=== PATIENT | male | born 1950 | race African-American/Black ===

== ENCOUNTER 2017-07-08 23:59 | Inpatient (IN) | payer OTHER ==
[~2017-07-08] VITALS: Ht 182.9 cm; Wt 68.0 kg
[~2017-07-08 23:59] MED LIST: albuterol
[2017-07-09] MEDS ORDERED: ALBUTEROL (0.083%) 2.5MG/3ML NEB HHN STA (00:56)
[2017-07-09] MEDS ORDERED: METHYLPREDNISOLONE SOD SUCC 125 MG/2 ML VIAL IV STA (00:56)
[2017-07-09] MEDS ORDERED: IPRATROPIUM BROMIDE (0.02%) 0.5MG/2.5ML NEB HHN STA (00:56)
[2017-07-09 01:13] LABS: BASOPHILS % 0.9 % (0.0-2.0); EOSINOPHILS % 4.5 % (0.0-5.0); HEMATOCRIT. 45.2 % (42.0-52.0); HEMOGLOBIN. 15.2 g/dL (14.0-18.0); LYMPHOCYTES % 18.8 % (20.0-50.0); MEAN CORPUSCULAR HEMOGLOBIN 27.8 pg (28.0-32.0); MEAN CORPUSCULAR VOLUME 82.5 fL (80.0-94.0); MEAN PLATELET VOLUME 7.6 fl (7.4-10.4); MONOCYTES % 5.1 % (2.0-8.0); NEUTROPHILS % 70.7 % (40.0-76.0); PLATELET 224 x1000/uL (130-400); RED BLOOD CELL COUNT 5.48 mill/uL (4.7-6.1); RED CELL DISTRIBUTION WIDTH 15.3 % (11.6-14.6)
[2017-07-09 01:29] LABS: CARBON DIOXIDE 27 mEq/L (21-32); CHLORIDE 108 mEq/L (98-107); TROPONIN I 0.04 ng/mL (0.00-0.04)
[2017-07-09] MEDS ORDERED: SODIUM CHLORIDE 0.9% 1,000 ML IV SCH (01:31)
[2017-07-09] MEDS ORDERED: ACETAMINOPHEN 325MG TABLET PO PRN ×2 (01:45→12:00)
[2017-07-09 01:54] LABS: BG BASE EXCESS -0.9 mmol/L (-2.0-2.0); BG CARBOXYHEMOGLOBIN 2.4 % (0.5-1.5); BG DEOXYHEMOGLOBIN 6.4 % (0.0-5.0); BG FRACTION INSPIRED OXYGEN 28; BG HCO3 ACT 24.5 mmol/L (22.0-26.0); BG METHEMOGLOBIN 0.3 % (0.0-1.5); BG OXYGEN SATURATION 93.4 % (92.0-98.5); BG OXYHEMOGLOBIN 90.9 % (94.0-97.0); BG PCO2 43.3 mmHg (35.0-45.0); BG PH 7.371 (7.350-7.450); BG PO2 68.7 mmHg (75.0-100.0); BG SAMPLE SITE RIGHT RADIAL; BG TOTAL HEMOGLOBIN 15.8 g/dL (12.0-18.0); BG VENT MODE NASAL CANNULA
[2017-07-09 04:00] VITALS: BP 141/78
[2017-07-09 04:20] VITALS: BP 141/78
[2017-07-09] MEDS ORDERED: METO25TA6 PO (05:21)
[2017-07-09] MEDS ORDERED: SIMV20TA6 PO (05:21)
[2017-07-09] MEDS ORDERED: IPRA3AMP9 HHN (05:21)
[2017-07-09] MEDS ORDERED: PRO AIR INH (05:21)
[2017-07-09 08:00] VITALS: BP 145/79
[2017-07-09 12:00] VITALS: BP 147/76
[2017-07-09] MEDS ORDERED: HYDROCODONE/ACETAMINOPHEN 5/325MG TABLET PO PRN (12:00)
[2017-07-09] MEDS ORDERED: CLONIDINE 0.1MG TABLET PO PRN (12:00)
[2017-07-09] MEDS ORDERED: HYDROMORPHONE HCL/PF 2MG/ML CPJ IV PRN (12:00)
[2017-07-09] MEDS ORDERED: ONDANSETRON HCL 4MG/2ML VIAL IV PRN (12:00)
[2017-07-09] MEDS ORDERED: IPRATROPIUM/ALBUTEROL 0.5-3(2.5)MG/3ML NEB INH PRN (12:00)
[2017-07-09] MEDS ORDERED: DOCUSATE SODIUM 100MG CAPSULE PO PRN (12:00)
[2017-07-09] MEDS ORDERED: METHYLPREDNISOLONE SOD SUCC 125 MG/2 ML VIAL IV SCH (12:00)
[2017-07-09] MEDS: GUAIFENESIN 200MG/10ML SUGAR FREE UDC PO PRN (13:03)
[2017-07-09] MEDS: AMLODIPINE 10MG TABLET PO SCH (13:04)
[2017-07-09] MEDS: ASPIRIN 81MG EC TABLET PO SCH (13:05)
[2017-07-09] MEDS: ENOXAPARIN 40MG/0.4ML SYR SUBCUT SCH (13:07)
[2017-07-09] MEDS: LEVOFLOXACIN 500MG PREMIX 100 ML IV SCH (13:56)
[2017-07-09] MEDS: IPRATROPIUM/ALBUTEROL 0.5-3(2.5)MG/3ML NEB INH SCH ×2 (15:33→20:08)
[2017-07-09 16:00] VITALS: BP 132/64
[2017-07-09] MEDS: METOPROLOL TARTRATE 25MG TABLET PO SCH (18:05)
[2017-07-09 20:07] VITALS: BP 142/64
[2017-07-09] MEDS: GUAIFENESIN 600MG ER TABLET PO SCH (21:00)
[2017-07-09] MEDS: METHYLPREDNISOLONE SOD SUCC 40 MG/ML VIAL IV SCH (21:53)
[2017-07-10 00:05] VITALS: BP 138/68
[2017-07-10] MEDS: IPRATROPIUM/ALBUTEROL 0.5-3(2.5)MG/3ML NEB INH SCH ×3 (02:52→14:35)
[2017-07-10 04:00] VITALS: BP 120/63
[2017-07-10] MEDS: METHYLPREDNISOLONE SOD SUCC 40 MG/ML VIAL IV SCH ×2 (05:33→13:22)
[2017-07-10] MEDS: METOPROLOL TARTRATE 25MG TABLET PO SCH (05:33)
[2017-07-10 06:47] LABS: HEMATOCRIT. 42.7 % (42.0-52.0); HEMOGLOBIN. 14.2 g/dL (14.0-18.0); MEAN CORPUSCULAR HEMOGLOBIN 27.3 pg (28.0-32.0); MEAN CORPUSCULAR VOLUME 82.5 fL (80.0-94.0); MEAN PLATELET VOLUME 8.1 fl (7.4-10.4); PLATELET 233 x1000/uL (130-400); RED BLOOD CELL COUNT 5.18 mill/uL (4.7-6.1); RED CELL DISTRIBUTION WIDTH 14.7 % (11.6-14.6)
[2017-07-10] MEDS: GUAIFENESIN 600MG ER TABLET PO SCH (08:05)
[2017-07-10] MEDS: GUAIFENESIN 200MG/10ML SUGAR FREE UDC PO PRN (08:05)
[2017-07-10] MEDS: ENOXAPARIN 40MG/0.4ML SYR SUBCUT SCH (08:05)
[2017-07-10] MEDS: AMLODIPINE 10MG TABLET PO SCH (08:05)
[2017-07-10] MEDS: ASPIRIN 81MG EC TABLET PO SCH (08:05)
[2017-07-10 08:19] VITALS: BP 136/72
[2017-07-10 09:02] LABS: CARBON DIOXIDE 24 mEq/L (21-32); CHLORIDE 109 mEq/L (98-107)
[2017-07-10 12:00] VITALS: BP 108/66
[2017-07-10] MEDS: LEVOFLOXACIN 500MG PREMIX 100 ML IV SCH (13:22)
[2017-07-10 16:00] VITALS: BP 112/64
[2017-07-10 16:33] LABS: PLATELET ESTIMATE NORMAL
[2017-07-10 16:58] VITALS: BP 112/64
[2017-07-10] MEDS ORDERED: METHYLPREDNISOLONE SOD SUCC 40 MG/ML VIAL IV SCH (21:00)
[2017-07-10] MEDS ORDERED: ATORVASTATIN CALCIUM 20MG TABLET PO SCH (21:00)
== END 2017-07-10 17:25 | disposition home or self-care (01) | DRG 189 ==
LOC: ER 23:59 → 7WST 07-09 01:33 → EDBEDREQ 07-09 01:36 → ENRESERV 07-09 01:46
PROVIDERS: ADMIT Hospitalist; ATTEND Hospitalist
DX: J96.01 Acute respiratory failure with hypoxia (principal); J44.0 Chronic obstructive pulmonary disease with (acute) lower respiratory infection; J44.1 Chronic obstructive pulmonary disease with (acute) exacerbation; J20.9 Acute bronchitis, unspecified; I10 Essential (primary) hypertension; Z60.2 Problems related to living alone; F17.210 Nicotine dependence, cigarettes, uncomplicated; Z79.899 Other long term (current) drug therapy; Z71.6 Tobacco abuse counseling; I25.2 Old myocardial infarction; Z83.3 Family history of diabetes mellitus; Z82.49 Family history of ischemic heart disease and other diseases of the circulatory system
CPT/HCPCS: 36415; 36600; 71010; 80048; 80053; 82375; 82805; 83605; 83880; 84484; 85025; 85379; 87040; 93005; 93970; 94640; 94644; 94664; 96374; 99291; J1650; J1956; J2920; J2930; J7030; J7050; J7611; J7620

== ENCOUNTER 2017-11-30 20:42 | Inpatient (IN) | payer MEDICARE, OTHER ==
[~2017-11-30] VITALS: Ht 182.9 cm; Wt 65.8 kg
[~2017-11-30 20:42] MED LIST changes: +IPRA3AMP9 HHN; +METO25TA6 PO; +PRO AIR INH; +SIMV20TA6 PO; -albuterol
[2017-11-30] MEDS ORDERED: IPRATROPIUM BROMIDE (0.02%) 0.5MG/2.5ML NEB HHN STA (20:48)
[2017-11-30] MEDS ORDERED: ASPIRIN 81MG TABLET PO STA (20:48)
[2017-11-30] MEDS ORDERED: ALBUTEROL (0.083%) 2.5MG/3ML NEB HHN STA ×2 (20:48→23:10)
[2017-11-30] MEDS ORDERED: NITROGLYCERIN 0.4MG TABLET SL SL PRN (21:00)
[2017-11-30] MEDS ORDERED: METHYLPREDNISOLONE SOD SUCC 125 MG/2 ML VIAL IV ONE (21:15)
[2017-11-30] MEDS ORDERED: LEVOFLOXACIN 750MG PREMIX 150 ML IV ONE (21:15)
[2017-11-30 21:17] LABS: BASOPHILS % 0.6 % (0.0-2.0); EOSINOPHILS % 4.4 % (0.0-5.0); HEMATOCRIT. 44.3 % (42.0-52.0); HEMOGLOBIN. 14.3 g/dL (14.0-18.0); LYMPHOCYTES % 37.9 % (20.0-50.0); MEAN CORPUSCULAR HEMOGLOBIN 27.2 pg (28.0-32.0); MEAN CORPUSCULAR VOLUME 84.2 fL (80.0-94.0); MEAN PLATELET VOLUME 7.4 fl (7.4-10.4); MONOCYTES % 7.5 % (2.0-8.0); NEUTROPHILS % 49.6 % (40.0-76.0); PLATELET 227 x1000/uL (130-400); RED BLOOD CELL COUNT 5.26 mill/uL (4.7-6.1); RED CELL DISTRIBUTION WIDTH 15.3 % (11.6-14.6)
[2017-11-30 21:25] LABS: CHLORIDE 106 mEq/L (98-107); INR 1.1; PARTIAL THROMBOPLASTIN TIME 25.2 sec (23.4-31.0)
[2017-11-30 22:27] LABS: BG BASE EXCESS -2.7 mmol/L (-2.0-2.0); BG BILEVEL POS AIRWAY PRESSURE 15/5; BG CARBOXYHEMOGLOBIN 1.3 % (0.5-1.5); BG DEOXYHEMOGLOBIN 0.3 % (0.0-5.0); BG FRACTION INSPIRED OXYGEN 60; BG METHEMOGLOBIN 0.1 % (0.0-1.5); BG OXYGEN SATURATION 99.7 % (92.0-98.5); BG OXYHEMOGLOBIN 98.3 % (94.0-97.0); BG PCO2 43.6 mmHg (35.0-45.0); BG PH 7.341 (7.350-7.450); BG PO2 347.5 mmHg (75.0-100.0); BG SAMPLE SITE RIGHT RADIAL; BG TOTAL HEMOGLOBIN 14.8 g/dL (12.0-18.0); BG VENT MODE MASK - BIPAP; BG VENT RATE 16 set
[2017-11-30] MEDS ORDERED: MAGNESIUM/ALUMINUM HYDROXIDE/SIMETHICONE 30ML UDC PO PRN (23:15)
[2017-11-30] MEDS ORDERED: IPRATROPIUM/ALBUTEROL 0.5-3(2.5)MG/3ML NEB INH PRN (23:15)
[2017-11-30] MEDS ORDERED: LORAZEPAM 0.5MG TABLET PO PRN (23:15)
[2017-11-30] MEDS ORDERED: NA PHOS,M-B/NA PHOS,DI-BA ENEMA 118ML PR PRN (23:15)
[2017-11-30] MEDS ORDERED: HYDROCODONE/ACETAMINOPHEN 10/325MG TABLET PO PRN (23:15)
[2017-11-30] MEDS ORDERED: CLONIDINE 0.1MG TABLET PO PRN (23:15)
[2017-11-30] MEDS ORDERED: GUAIFENESIN 200MG/10ML SUGAR FREE UDC PO PRN (23:15)
[2017-12-01] VITALS (91 sets, daily range): BP systolic 69–140; BP diastolic 30–111
[2017-12-01 01:00] LABS: CHLORIDE 108 mEq/L (98-107)
[2017-12-01] MEDS ORDERED: SODIUM CHLORIDE 0.9% 1000ML BAG (SEPSIS BOLUS) IV ONE (01:15)
[2017-12-01] MEDS: MORPHINE SULFATE 4 MG/ML CPJ (NOT FOR IM USE) IV PRN ×2 (04:29→08:40)
[2017-12-01] MEDS ORDERED: IPRATROPIUM/ALBUTEROL 0.5-3(2.5)MG/3ML NEB HHN PRN (04:30)
[2017-12-01] MEDS ORDERED: MAGNESIUM 2 G PREMIX 50 ML IV NR (05:00)
[2017-12-01] MEDS: DEXT 5%/0.45% NACL 1000ML 1,000 ML IV SCH (05:30)
[2017-12-01] MEDS: NOREPINEPHRINE 8 MG in DEXT 5% WATER 242 ML IV PRN ×2 (05:53→19:07)
[2017-12-01] MEDS: PROPOFOL 10MG/ML 100ML 100 ML IV PRN ×2 (05:55→10:21)
[2017-12-01 06:19] LABS: BG CARBOXYHEMOGLOBIN 0.5 % (0.5-1.5); BG DEOXYHEMOGLOBIN 0.3 % (0.0-5.0); BG FRACTION INSPIRED OXYGEN 100; BG HCO3 ACT 19.5 mmol/L (22.0-26.0); BG METHEMOGLOBIN 0.3 % (0.0-1.5); BG OXYGEN SATURATION 99.7 % (92.0-98.5); BG OXYHEMOGLOBIN 98.9 % (94.0-97.0); BG PCO2 58.7 mmHg (35.0-45.0); BG PH 7.139 (7.350-7.450); BG PO2 434.7 mmHg (75.0-100.0); BG SAMPLE SITE RIGHT RADIAL; BG TIDAL VOLUME(mL) 550 mL; BG TOTAL HEMOGLOBIN 13.5 g/dL (12.0-18.0); BG VENT MODE VENT - A/C; BG VENT RATE 16 set
[2017-12-01] MEDS: METHYLPREDNISOLONE SOD SUCC 125 MG/2 ML VIAL IV SCH ×3 (07:21→17:03)
[2017-12-01] MEDS: IPRATROPIUM/ALBUTEROL 0.5-3(2.5)MG/3ML NEB HHN SCH ×4 (07:44→20:38)
[2017-12-01] MEDS: PANTOPRAZOLE SODIUM 40 MG/VIAL IV SCH (08:39)
[2017-12-01] MEDS: ASPIRIN 81MG EC TABLET PO SCH (08:40)
[2017-12-01] MEDS: ENOXAPARIN 40MG/0.4ML SYR SUBCUT SCH (08:41)
[2017-12-01 09:11] LABS: BG BASE EXCESS -8.1 mmol/L (-2.0-2.0); BG CARBOXYHEMOGLOBIN 0.7 % (0.5-1.5); BG DEOXYHEMOGLOBIN 2.4 % (0.0-5.0); BG HCO3 ACT 18.8 mmol/L (22.0-26.0); BG METHEMOGLOBIN 0.4 % (0.0-1.5); BG OXYGEN SATURATION 97.6 % (92.0-98.5); BG OXYHEMOGLOBIN 96.5 % (94.0-97.0); BG PCO2 43.6 mmHg (35.0-45.0); BG PH 7.252 (7.350-7.450); BG PO2 111.9 mmHg (75.0-100.0); BG SAMPLE SITE RIGHT BRACHIAL; BG TIDAL VOLUME(mL) 500 mL; BG TOTAL HEMOGLOBIN 13.8 g/dL (12.0-18.0); BG VENT MODE VENT - A/C; BG VENT RATE 20 set
[2017-12-01 09:31] LABS: HEMOGLOBIN. 13.1 g/dL (14.0-18.0); MEAN CORPUSCULAR HEMOGLOBIN 26.6 pg (28.0-32.0); MEAN CORPUSCULAR VOLUME 83.5 fL (80.0-94.0); MEAN PLATELET VOLUME 7.6 fl (7.4-10.4); PLATELET 251 x1000/uL (130-400); RED BLOOD CELL COUNT 4.91 mill/uL (4.7-6.1); RED CELL DISTRIBUTION WIDTH 15.3 % (11.6-14.6)
[2017-12-01 09:38] LABS: CHLORIDE 111 mEq/L (98-107)
[2017-12-01] MEDS ORDERED: LIDOCAINE HCL 1% 20ML VIAL (Pyxis) INJ ONE (09:46)
[2017-12-01 09:56] LABS: HDL CHOLESTEROL 54 mg/dL (40-59); LDL CHOLESTEROL 58 mg/dL (5-100)
[2017-12-01 10:07] LABS: PLATELET ESTIMATE NORMAL
[2017-12-01] MEDS ORDERED: SODIUM BICARBONATE 8.4% 1 MEQ/ML 50ML SYR IV NR (11:15)
[2017-12-01] MEDS ORDERED: ETOMIDATE 2MG/ML 10ML VIAL IV ONE (11:18)
[2017-12-01] MEDS ORDERED: MAGNESIUM SULFATE 4G IN WATER 100ML PREMIX IV ONE (11:18)
[2017-12-01] MEDS ORDERED: SUCCINYLCHOLINE CHLORIDE 200MG/10ML VIAL IV ONE (11:18)
[2017-12-01] MEDS: FENTANYL CITRATE/PF 500 MCG in SODIUM CHLORIDE 0.9% 40 ML IV PRN ×2 (12:45→17:22)
[2017-12-01] MEDS: MIDAZOLAM HCL 50 MG in DEXTROSE 5% WATER 40 ML IV PRN ×2 (12:45→19:01)
[2017-12-01 14:16] LABS: BG BASE EXCESS -0.9 mmol/L (-2.0-2.0); BG CARBOXYHEMOGLOBIN 0.6 % (0.5-1.5); BG DEOXYHEMOGLOBIN 3.3 % (0.0-5.0); BG FRACTION INSPIRED OXYGEN 50; BG HCO3 ACT 24.8 mmol/L (22.0-26.0); BG METHEMOGLOBIN 0.2 % (0.0-1.5); BG OXYGEN SATURATION 96.7 % (92.0-98.5); BG OXYHEMOGLOBIN 95.9 % (94.0-97.0); BG PCO2 45.5 mmHg (35.0-45.0); BG PH 7.355 (7.350-7.450); BG PO2 94.3 mmHg (75.0-100.0); BG SAMPLE SITE RIGHT BRACHIAL; BG TIDAL VOLUME(mL) 500 mL; BG VENT MODE VENT - A/C; BG VENT RATE 20 set
[2017-12-01] MEDS: AZITHROMYCIN 500 MG in DEXT 5% WATER 250 ML IV SCH (15:32)
[2017-12-01 17:29] LABS: CLARITY URINE TURBID (CLEAR); COLOR URINE DARK YELLOW (YELLOW); KETONES URINE TRACE (NEGATIVE); LEUKOCYTE ESTERASE URINE TRACE (NEGATIVE); NITRITE URINE NEGATIVE (NEGATIVE); OCCULT BLOOD URINE 3+ (NEGATIVE); PH URINE 5.5 (4.5-8.0); PROTEIN URINE 1+ (NEGATIVE); UROBILINOGEN URINE 0.2 E.U./dL (0.2-1.0)
[2017-12-01 17:41] LABS: *AMPHETAMINES SCREEN URINE NEGATIVE (NEGATIVE); *BARBITURATES SCREEN URINE NEGATIVE (NEGATIVE); *BENZODIAZEPINES SCREEN URINE PRESUMTIVE POSITIVE (NEGATIVE); *COCAINE SCREEN URINE NEGATIVE (NEGATIVE); METHADONE URINE SCREEN NEGATIVE (NEGATIVE); OPIATES URINE SCREEN PRESUMTIVE POSITIVE (NEGATIVE)
[2017-12-01 17:42] LABS: CANNABINOID URINE SCREEN NEGATIVE (NEGATIVE); PHENCYCLIDINE URINE SCREEN NEGATIVE (NEGATIVE)
[2017-12-01] MEDS ORDERED: LEVOFLOXACIN 500MG PREMIX 100 ML IV SCH ×2 (21:00→22:00)
[2017-12-02] VITALS (87 sets, daily range): BP systolic 85–149; BP diastolic 48–107
[2017-12-02] MEDS: IPRATROPIUM/ALBUTEROL 0.5-3(2.5)MG/3ML NEB HHN SCH ×6 (00:09→19:42)
[2017-12-02] MEDS: METHYLPREDNISOLONE SOD SUCC 125 MG/2 ML VIAL IV SCH ×5 (00:40→23:27)
[2017-12-02 05:03] LABS: HEMATOCRIT. 38.2 % (42.0-52.0); HEMOGLOBIN. 12.2 g/dL (14.0-18.0); MEAN CORPUSCULAR HEMOGLOBIN 26.6 pg (28.0-32.0); MEAN CORPUSCULAR VOLUME 82.8 fL (80.0-94.0); MEAN PLATELET VOLUME 7.8 fl (7.4-10.4); PLATELET 217 x1000/uL (130-400); RED BLOOD CELL COUNT 4.61 mill/uL (4.7-6.1); RED CELL DISTRIBUTION WIDTH 14.9 % (11.6-14.6)
[2017-12-02 05:08] LABS: CHLORIDE 108 mEq/L (98-107)
[2017-12-02] MEDS: MIDAZOLAM HCL 50 MG in DEXTROSE 5% WATER 40 ML IV PRN ×2 (06:38→14:27)
[2017-12-02] MEDS: DEXT 5%/0.45% NACL 1000ML 1,000 ML IV SCH (06:52)
[2017-12-02 07:16] LABS: PLATELET ESTIMATE NORMAL
[2017-12-02 07:53] LABS: BG BASE EXCESS 2.1 mmol/L (-2.0-2.0); BG CARBOXYHEMOGLOBIN 0.5 % (0.5-1.5); BG DEOXYHEMOGLOBIN 4.3 % (0.0-5.0); BG FRACTION INSPIRED OXYGEN 50; BG HCO3 ACT 27.6 mmol/L (22.0-26.0); BG METHEMOGLOBIN 0.2 % (0.0-1.5); BG OXYGEN SATURATION 95.7 % (92.0-98.5); BG PCO2 46.6 mmHg (35.0-45.0); BG PH 7.391 (7.350-7.450); BG PO2 79.7 mmHg (75.0-100.0); BG SAMPLE SITE RIGHT BRACHIAL; BG TIDAL VOLUME(mL) 500 mL; BG VENT MODE VENT - A/C; BG VENT RATE 20 set
[2017-12-02] MEDS: PANTOPRAZOLE SODIUM 40 MG/VIAL IV SCH (08:31)
[2017-12-02] MEDS: ASPIRIN 81MG EC TABLET PO SCH (08:31)
[2017-12-02] MEDS: AZITHROMYCIN 500 MG in DEXT 5% WATER 250 ML IV SCH (08:32)
[2017-12-02] MEDS: ENOXAPARIN 40MG/0.4ML SYR SUBCUT SCH (08:32)
[2017-12-02] MEDS: FUROSEMIDE 40MG/4ML VIAL IVP SCH (12:06)
[2017-12-02] MEDS: RISPERIDONE 0.5MG TABLET PO SCH ×2 (12:07→17:12)
[2017-12-02] MEDS: FENTANYL CITRATE/PF 500 MCG in SODIUM CHLORIDE 0.9% 40 ML IV PRN ×2 (12:49→21:11)
[2017-12-02] MEDS: THIAMINE HCL 100MG TABLET PO SCH (14:25)
[2017-12-02] MEDS: FOLIC ACID 1MG TABLET PO SCH (14:25)
[2017-12-02] MEDS: MULTIVITAMINS,THER W-MINERALS TABLET PO SCH (14:25)
[2017-12-02] MEDS: MEROPENEM 1,000 MG in SODIUM CHLORIDE 0.9% 100 ML IV SCH ×2 (14:58→21:49)
[2017-12-02] MEDS ORDERED: VANCOMYCIN 1500MG in DEXTROSE 5% WATER 250ML IV NR (16:00)
[2017-12-02] MEDS: BLOOD SUGAR DIAGNOSTIC STRIP TEST SCH ×2 (17:13→23:19)
[2017-12-02] MEDS ORDERED: DEXTROSE 50% WATER 50ML SYRINGE IV PRN (18:00)
[2017-12-02] MEDS: INSULIN LISPRO 100 UNITS/ML SUBCUT SCH ×2 (18:20→23:57)
[2017-12-03] VITALS (88 sets, daily range): BP systolic 87–153; BP diastolic 57–123
[2017-12-03] MEDS: IPRATROPIUM/ALBUTEROL 0.5-3(2.5)MG/3ML NEB HHN SCH ×6 (00:12→20:20)
[2017-12-03] MEDS: NOREPINEPHRINE 8 MG in DEXT 5% WATER 242 ML IV PRN (02:14)
[2017-12-03] MEDS: MIDAZOLAM HCL 50 MG in DEXTROSE 5% WATER 40 ML IV PRN ×2 (04:04→20:26)
[2017-12-03] MEDS: BLOOD SUGAR DIAGNOSTIC STRIP TEST SCH ×4 (05:00→23:48)
[2017-12-03 05:33] LABS: HEMATOCRIT. 36.7 % (42.0-52.0); HEMOGLOBIN. 11.8 g/dL (14.0-18.0); MEAN CORPUSCULAR HEMOGLOBIN 26.6 pg (28.0-32.0); MEAN CORPUSCULAR VOLUME 82.8 fL (80.0-94.0); PLATELET 187 x1000/uL (130-400); RED BLOOD CELL COUNT 4.43 mill/uL (4.7-6.1); RED CELL DISTRIBUTION WIDTH 15.3 % (11.6-14.6)
[2017-12-03 05:54] LABS: CHLORIDE 107 mEq/L (98-107)
[2017-12-03] MEDS ORDERED: VANCOMYCIN 1 G PREMIX 200 ML IV SCH (06:00)
[2017-12-03] MEDS: MEROPENEM 1,000 MG in SODIUM CHLORIDE 0.9% 100 ML IV SCH ×3 (06:33→22:38)
[2017-12-03] MEDS: INSULIN LISPRO 100 UNITS/ML SUBCUT SCH ×4 (06:34→23:49)
[2017-12-03] MEDS: METHYLPREDNISOLONE SOD SUCC 125 MG/2 ML VIAL IV SCH ×4 (06:34→23:48)
[2017-12-03] MEDS: FENTANYL CITRATE/PF 500 MCG in SODIUM CHLORIDE 0.9% 40 ML IV PRN ×3 (08:06→20:26)
[2017-12-03] MEDS ORDERED: LORAZEPAM 2MG/ML CPJ IV NR (08:30)
[2017-12-03] MEDS: ASPIRIN 81MG EC TABLET PO SCH (08:50)
[2017-12-03] MEDS: RISPERIDONE 0.5MG TABLET PO SCH (08:50)
[2017-12-03] MEDS: MULTIVITAMINS,THER W-MINERALS TABLET PO SCH (08:50)
[2017-12-03] MEDS: THIAMINE HCL 100MG TABLET PO SCH (08:50)
[2017-12-03] MEDS: FUROSEMIDE 40MG/4ML VIAL IVP SCH (08:51)
[2017-12-03] MEDS: ENOXAPARIN 40MG/0.4ML SYR SUBCUT SCH (08:51)
[2017-12-03] MEDS: FOLIC ACID 1MG TABLET PO SCH (08:51)
[2017-12-03] MEDS: PANTOPRAZOLE SODIUM 40 MG/VIAL IV SCH (09:35)
[2017-12-03 09:38] LABS: BG BASE EXCESS 5.1 mmol/L (-2.0-2.0); BG CARBOXYHEMOGLOBIN 0.3 % (0.5-1.5); BG DEOXYHEMOGLOBIN 8.9 % (0.0-5.0); BG FRACTION INSPIRED OXYGEN 60; BG HCO3 ACT 31.4 mmol/L (22.0-26.0); BG METHEMOGLOBIN 0.3 % (0.0-1.5); BG OXYHEMOGLOBIN 90.5 % (94.0-97.0); BG PCO2 53.6 mmHg (35.0-45.0); BG PH 7.386 (7.350-7.450); BG SAMPLE SITE RIGHT BRACHIAL; BG TIDAL VOLUME(mL) 500 mL; BG TOTAL HEMOGLOBIN 13.6 g/dL (12.0-18.0); BG VENT MODE VENT - A/C; BG VENT RATE 20 set
[2017-12-03 13:03] LABS: PLATELET ESTIMATE NORMAL
[2017-12-03] MEDS: RISPERIDONE 1MG TABLET NG SCH (20:25)
[2017-12-03] MEDS: VANCOMYCIN 1 G PREMIX 200 ML IV SCH (20:25)
[2017-12-04] VITALS (76 sets, daily range): BP systolic 89–186; BP diastolic 49–161
[2017-12-04] MEDS: IPRATROPIUM/ALBUTEROL 0.5-3(2.5)MG/3ML NEB HHN SCH ×7 (00:09→23:58)
[2017-12-04] MEDS: METHYLPREDNISOLONE SOD SUCC 125 MG/2 ML VIAL IV SCH (05:36)
[2017-12-04] MEDS: INSULIN LISPRO 100 UNITS/ML SUBCUT SCH ×3 (05:45→17:56)
[2017-12-04] MEDS: BLOOD SUGAR DIAGNOSTIC STRIP TEST SCH ×4 (05:47→23:30)
[2017-12-04] MEDS: MORPHINE SULFATE 4 MG/ML CPJ (NOT FOR IM USE) IV PRN (05:52)
[2017-12-04] MEDS: MEROPENEM 1,000 MG in SODIUM CHLORIDE 0.9% 100 ML IV SCH ×3 (05:54→22:25)
[2017-12-04] MEDS: FENTANYL CITRATE/PF 500 MCG in SODIUM CHLORIDE 0.9% 40 ML IV PRN ×2 (06:08→17:25)
[2017-12-04 06:30] LABS: HEMATOCRIT. 36.7 % (42.0-52.0); HEMOGLOBIN. 11.7 g/dL (14.0-18.0); MEAN CORPUSCULAR HEMOGLOBIN 26.6 pg (28.0-32.0); MEAN CORPUSCULAR VOLUME 83.4 fL (80.0-94.0); MEAN PLATELET VOLUME 8.2 fl (7.4-10.4); PLATELET 188 x1000/uL (130-400); RED CELL DISTRIBUTION WIDTH 15.1 % (11.6-14.6)
[2017-12-04 06:43] LABS: CHLORIDE 105 mEq/L (98-107)
[2017-12-04] MEDS: DOCUSATE SODIUM 100MG CAPSULE PO PRN (08:48)
[2017-12-04] MEDS: VANCOMYCIN 1 G PREMIX 200 ML IV SCH ×3 (08:48→22:25)
[2017-12-04] MEDS: RISPERIDONE 1MG TABLET NG SCH ×2 (08:48→20:27)
[2017-12-04] MEDS: THIAMINE HCL 100MG TABLET PO SCH (08:48)
[2017-12-04] MEDS: PANTOPRAZOLE SODIUM 40 MG/VIAL IV SCH (08:48)
[2017-12-04] MEDS: ASPIRIN 81MG EC TABLET PO SCH (08:48)
[2017-12-04] MEDS: FOLIC ACID 1MG TABLET PO SCH (08:48)
[2017-12-04] MEDS: MULTIVITAMINS,THER W-MINERALS TABLET PO SCH (08:48)
[2017-12-04] MEDS: FUROSEMIDE 40MG/4ML VIAL IVP SCH (08:49)
[2017-12-04] MEDS: ENOXAPARIN 40MG/0.4ML SYR SUBCUT SCH (08:49)
[2017-12-04] MEDS: MIDAZOLAM HCL 50 MG in DEXTROSE 5% WATER 40 ML IV PRN ×2 (08:51→12:19)
[2017-12-04] MEDS: METHYLPREDNISOLONE SOD SUCC 40 MG/ML VIAL IV SCH ×2 (08:55→22:24)
[2017-12-04] MEDS ORDERED: METOPROLOL TARTRATE 50MG TABLET PO SCH (09:00)
[2017-12-04 09:01] LABS: BG BASE EXCESS 7.3 mmol/L (-2.0-2.0); BG CARBOXYHEMOGLOBIN 0.2 % (0.5-1.5); BG DEOXYHEMOGLOBIN 3.2 % (0.0-5.0); BG HCO3 ACT 34.3 mmol/L (22.0-26.0); BG METHEMOGLOBIN 0.2 % (0.0-1.5); BG OXYGEN SATURATION 96.8 % (92.0-98.5); BG OXYHEMOGLOBIN 96.4 % (94.0-97.0); BG PCO2 59.3 mmHg (35.0-45.0); BG PO2 92.9 mmHg (75.0-100.0); BG SAMPLE SITE RIGHT RADIAL; BG TIDAL VOLUME(mL) 500 mL; BG TOTAL HEMOGLOBIN 13.5 g/dL (12.0-18.0); BG VENT MODE VENT - A/C; BG VENT RATE 20 set
[2017-12-04] MEDS ORDERED: LORAZEPAM 2MG/ML CPJ IV PRN (12:30)
[2017-12-04] MEDS ORDERED: MORPHINE SULFATE 4 MG/ML CPJ (NOT FOR IM USE) IV PRN (12:30)
[2017-12-04 12:35] LABS: PLATELET ESTIMATE NORMAL
[2017-12-04] MEDS ORDERED: MIDAZOLAM HCL 100 MG in DEXT 5% WATER 80 ML IV PRN (17:00)
[2017-12-04] MEDS: FENTANYL CITRATE/PF 1,000 MCG in SODIUM CHLORIDE 0.9% 80 ML IV PRN (20:29)
[2017-12-05] VITALS (76 sets, daily range): BP systolic 84–193; BP diastolic 48–125
[2017-12-05] MEDS: INSULIN LISPRO 100 UNITS/ML SUBCUT SCH ×4 (00:18→18:00)
[2017-12-05] MEDS: IPRATROPIUM/ALBUTEROL 0.5-3(2.5)MG/3ML NEB HHN SCH ×6 (04:15→20:11)
[2017-12-05] MEDS: BLOOD SUGAR DIAGNOSTIC STRIP TEST SCH ×4 (05:00→23:00)
[2017-12-05] MEDS: MEROPENEM 1,000 MG in SODIUM CHLORIDE 0.9% 100 ML IV SCH ×3 (06:14→21:00)
[2017-12-05] MEDS: METHYLPREDNISOLONE SOD SUCC 40 MG/ML VIAL IV SCH ×3 (06:14→21:00)
[2017-12-05] MEDS: VANCOMYCIN 1 G PREMIX 200 ML IV SCH ×3 (06:14→21:36)
[2017-12-05] MEDS: FENTANYL CITRATE/PF 1,000 MCG in SODIUM CHLORIDE 0.9% 80 ML IV PRN ×2 (08:48→21:48)
[2017-12-05] MEDS: HALOPERIDOL LACTATE 5MG/ML VIAL IM PRN (09:32)
[2017-12-05] MEDS: FOLIC ACID 1MG TABLET PO SCH (09:52)
[2017-12-05] MEDS: PANTOPRAZOLE SODIUM 40 MG/VIAL IV SCH (09:52)
[2017-12-05] MEDS: DOCUSATE SODIUM 100MG CAPSULE PO PRN (09:52)
[2017-12-05] MEDS: ASPIRIN 81MG EC TABLET PO SCH (09:52)
[2017-12-05] MEDS: RISPERIDONE 1MG TABLET NG SCH ×2 (09:52→21:00)
[2017-12-05] MEDS: MULTIVITAMINS,THER W-MINERALS TABLET PO SCH (09:52)
[2017-12-05] MEDS: THIAMINE HCL 100MG TABLET PO SCH (09:52)
[2017-12-05] MEDS: ENOXAPARIN 40MG/0.4ML SYR SUBCUT SCH (09:53)
[2017-12-05] MEDS: BUDESONIDE 0.5MG/2ML NEB HHN SCH ×2 (10:04→20:11)
[2017-12-05] MEDS: LORAZEPAM 2MG/ML CPJ IV PRN (16:59)
[2017-12-05] MEDS ORDERED: LACTULOSE 20G/30ML UDC PO SCH (17:45)
[2017-12-05] MEDS ORDERED: LORAZEPAM 2MG/ML CPJ IV NR (18:30)
[2017-12-05] MEDS: MIDAZOLAM HCL 100 MG in DEXT 5% WATER 80 ML IV PRN (19:50)
[2017-12-05] MEDS: LEVETIRACETAM 500 MG in SODIUM CHLORIDE 0.9% 100 ML IV SCH (19:59)
[2017-12-05] MEDS: BISACODYL 10MG SUPP PR PRN (21:00)
[2017-12-06] VITALS (86 sets, daily range): BP systolic 74–159; BP diastolic 45–103
[2017-12-06] MEDS: INSULIN LISPRO 100 UNITS/ML SUBCUT SCH ×4 (00:07→17:52)
[2017-12-06] MEDS: IPRATROPIUM/ALBUTEROL 0.5-3(2.5)MG/3ML NEB HHN SCH ×6 (00:23→20:20)
[2017-12-06] MEDS: MEROPENEM 1,000 MG in SODIUM CHLORIDE 0.9% 100 ML IV SCH ×3 (05:42→21:05)
[2017-12-06] MEDS: VANCOMYCIN 1 G PREMIX 200 ML IV SCH ×3 (05:42→21:05)
[2017-12-06] MEDS: BLOOD SUGAR DIAGNOSTIC STRIP TEST SCH ×4 (05:47→23:00)
[2017-12-06] MEDS: LEVETIRACETAM 500 MG in SODIUM CHLORIDE 0.9% 100 ML IV SCH (06:18)
[2017-12-06 06:21] LABS: HEMATOCRIT. 35.3 % (42.0-52.0); HEMOGLOBIN. 11.5 g/dL (14.0-18.0); MEAN CORPUSCULAR VOLUME 82.6 fL (80.0-94.0); MEAN PLATELET VOLUME 7.8 fl (7.4-10.4); PLATELET 166 x1000/uL (130-400); RED BLOOD CELL COUNT 4.27 mill/uL (4.7-6.1); RED CELL DISTRIBUTION WIDTH 15.3 % (11.6-14.6)
[2017-12-06 07:26] LABS: CHLORIDE 105 mEq/L (98-107)
[2017-12-06 07:36] LABS: PLATELET ESTIMATE NORMAL
[2017-12-06] MEDS: BUDESONIDE 0.5MG/2ML NEB HHN SCH ×2 (09:22→20:20)
[2017-12-06] MEDS: FOLIC ACID 1MG TABLET PO SCH (09:28)
[2017-12-06] MEDS: ASPIRIN 81MG EC TABLET PO SCH (09:28)
[2017-12-06] MEDS: MULTIVITAMINS,THER W-MINERALS TABLET PO SCH (09:28)
[2017-12-06] MEDS: THIAMINE HCL 100MG TABLET PO SCH (09:28)
[2017-12-06] MEDS: ENOXAPARIN 40MG/0.4ML SYR SUBCUT SCH (09:29)
[2017-12-06] MEDS: PANTOPRAZOLE SODIUM 40 MG/VIAL IV SCH (09:30)
[2017-12-06] MEDS: RISPERIDONE 1MG TABLET PO SCH ×2 (09:34→20:48)
[2017-12-06] MEDS: LORAZEPAM 2MG/ML CPJ IV PRN (13:22)
[2017-12-06] MEDS: FENTANYL CITRATE/PF 1,000 MCG in SODIUM CHLORIDE 0.9% 80 ML IV PRN (14:07)
[2017-12-06] MEDS: MIDAZOLAM HCL 100 MG in DEXT 5% WATER 80 ML IV PRN (15:10)
[2017-12-06] MEDS: LEVETIRACETAM 500MG PREMIX 100 ML IV SCH (18:06)
[2017-12-07] VITALS (96 sets, daily range): BP systolic 59–172; BP diastolic 39–104
[2017-12-07] MEDS: IPRATROPIUM/ALBUTEROL 0.5-3(2.5)MG/3ML NEB HHN SCH ×6 (00:22→20:21)
[2017-12-07] MEDS: FENTANYL CITRATE/PF 1,000 MCG in SODIUM CHLORIDE 0.9% 80 ML IV PRN ×2 (00:55→13:45)
[2017-12-07] MEDS: MIDAZOLAM HCL 100 MG in DEXT 5% WATER 80 ML IV PRN ×2 (00:56→16:00)
[2017-12-07] MEDS: BLOOD SUGAR DIAGNOSTIC STRIP TEST SCH ×4 (05:00→23:00)
[2017-12-07] MEDS: MEROPENEM 1,000 MG in SODIUM CHLORIDE 0.9% 100 ML IV SCH ×3 (05:10→22:00)
[2017-12-07] MEDS: INSULIN LISPRO 100 UNITS/ML SUBCUT SCH ×4 (05:10→18:00)
[2017-12-07] MEDS: VANCOMYCIN 1 G PREMIX 200 ML IV SCH ×3 (05:11→22:00)
[2017-12-07] MEDS: LEVETIRACETAM 500MG PREMIX 100 ML IV SCH ×2 (06:26→18:35)
[2017-12-07] MEDS: BUDESONIDE 0.5MG/2ML NEB HHN SCH ×2 (08:10→20:21)
[2017-12-07 08:45] LABS: BG BASE EXCESS 13.6 mmol/L (-2.0-2.0); BG CARBOXYHEMOGLOBIN 0.9 % (0.5-1.5); BG DEOXYHEMOGLOBIN 3.9 % (0.0-5.0); BG FRACTION INSPIRED OXYGEN 55; BG HCO3 ACT 39.7 mmol/L (22.0-26.0); BG METHEMOGLOBIN 0.2 % (0.0-1.5); BG OXYGEN SATURATION 96.1 % (92.0-98.5); BG PCO2 55.9 mmHg (35.0-45.0); BG PH 7.469 (7.350-7.450); BG PO2 82.7 mmHg (75.0-100.0); BG SAMPLE SITE RIGHT RADIAL; BG TIDAL VOLUME(mL) 500 mL; BG TOTAL HEMOGLOBIN 13.4 g/dL (12.0-18.0); BG VENT MODE VENT - A/C; BG VENT RATE 20 set
[2017-12-07] MEDS: RISPERIDONE 1MG TABLET PO SCH ×2 (09:01→21:00)
[2017-12-07] MEDS: FOLIC ACID 1MG TABLET PO SCH (09:01)
[2017-12-07] MEDS: PANTOPRAZOLE SODIUM 40 MG/VIAL IV SCH (09:01)
[2017-12-07] MEDS: THIAMINE HCL 100MG TABLET PO SCH (09:01)
[2017-12-07] MEDS: ASPIRIN 81MG EC TABLET PO SCH (09:01)
[2017-12-07] MEDS: MULTIVITAMINS,THER W-MINERALS TABLET PO SCH (09:02)
[2017-12-07] MEDS: ENOXAPARIN 40MG/0.4ML SYR SUBCUT SCH (09:02)
[2017-12-07] MEDS ORDERED: SODIUM CHLORIDE 0.9% 250 ML IV ONE (10:30)
[2017-12-07 11:34] LABS: BASOPHILS % 0.2 % (0.0-2.0); EOSINOPHILS % 0.6 % (0.0-5.0); HEMATOCRIT. 36.2 % (42.0-52.0); HEMOGLOBIN. 11.9 g/dL (14.0-18.0); LYMPHOCYTES % 14.4 % (20.0-50.0); MEAN CORPUSCULAR HEMOGLOBIN 27.4 pg (28.0-32.0); MEAN CORPUSCULAR VOLUME 83.2 fL (80.0-94.0); MEAN PLATELET VOLUME 7.6 fl (7.4-10.4); MONOCYTES % 9.8 % (2.0-8.0); PLATELET 167 x1000/uL (130-400); RED BLOOD CELL COUNT 4.35 mill/uL (4.7-6.1); RED CELL DISTRIBUTION WIDTH 14.9 % (11.6-14.6)
[2017-12-07 11:51] LABS: CHLORIDE 106 mEq/L (98-107)
[2017-12-07] MEDS: NOREPINEPHRINE 8 MG in SODIUM CHLORIDE 0.9% 250 ML IV PRN (21:12)
[2017-12-08] VITALS (68 sets, daily range): BP systolic 58–198; BP diastolic 31–125
[2017-12-08] MEDS: IPRATROPIUM/ALBUTEROL 0.5-3(2.5)MG/3ML NEB HHN SCH ×6 (00:17→20:17)
[2017-12-08] MEDS: INSULIN LISPRO 100 UNITS/ML SUBCUT SCH ×5 (01:14→23:48)
[2017-12-08] MEDS: FENTANYL CITRATE/PF 1,000 MCG in SODIUM CHLORIDE 0.9% 80 ML IV PRN (04:14)
[2017-12-08] MEDS: BLOOD SUGAR DIAGNOSTIC STRIP TEST SCH ×4 (05:00→22:44)
[2017-12-08 05:31] LABS: BASOPHILS % 0.2 % (0.0-2.0); EOSINOPHILS % 1.9 % (0.0-5.0); HEMATOCRIT. 38.1 % (42.0-52.0); HEMOGLOBIN. 12.7 g/dL (14.0-18.0); LYMPHOCYTES % 14.6 % (20.0-50.0); MEAN CORPUSCULAR HEMOGLOBIN 27.5 pg (28.0-32.0); MEAN CORPUSCULAR VOLUME 82.8 fL (80.0-94.0); MEAN PLATELET VOLUME 7.7 fl (7.4-10.4); MONOCYTES % 9.3 % (2.0-8.0); PLATELET 194 x1000/uL (130-400); RED BLOOD CELL COUNT 4.61 mill/uL (4.7-6.1); RED CELL DISTRIBUTION WIDTH 14.7 % (11.6-14.6)
[2017-12-08 05:53] LABS: CHLORIDE 102 mEq/L (98-107)
[2017-12-08] MEDS: MEROPENEM 1,000 MG in SODIUM CHLORIDE 0.9% 100 ML IV SCH ×3 (06:57→22:36)
[2017-12-08] MEDS: VANCOMYCIN 1 G PREMIX 200 ML IV SCH ×3 (06:57→20:56)
[2017-12-08] MEDS: LEVETIRACETAM 500MG PREMIX 100 ML IV SCH ×2 (07:11→18:23)
[2017-12-08] MEDS: NOREPINEPHRINE 8 MG in SODIUM CHLORIDE 0.9% 250 ML IV PRN ×2 (08:11→16:20)
[2017-12-08] MEDS: MIDAZOLAM HCL 100 MG in DEXT 5% WATER 80 ML IV PRN (08:27)
[2017-12-08 08:35] LABS: BG BASE EXCESS 11.2 mmol/L (-2.0-2.0); BG CARBOXYHEMOGLOBIN 0.6 % (0.5-1.5); BG DEOXYHEMOGLOBIN 3.7 % (0.0-5.0); BG FRACTION INSPIRED OXYGEN 55; BG HCO3 ACT 36.5 mmol/L (22.0-26.0); BG METHEMOGLOBIN 0.4 % (0.0-1.5); BG OXYGEN SATURATION 96.3 % (92.0-98.5); BG OXYHEMOGLOBIN 95.3 % (94.0-97.0); BG PCO2 50.2 mmHg (35.0-45.0); BG PH 7.479 (7.350-7.450); BG SAMPLE SITE RIGHT BRACHIAL; BG TIDAL VOLUME(mL) 500 mL; BG VENT MODE VENT - A/C; BG VENT RATE 20 set
[2017-12-08] MEDS: PANTOPRAZOLE SODIUM 40 MG/VIAL IV SCH (08:57)
[2017-12-08] MEDS: RISPERIDONE 1MG TABLET PO SCH ×2 (08:57→20:56)
[2017-12-08] MEDS: BISACODYL 10MG SUPP PR PRN (08:58)
[2017-12-08] MEDS: ENOXAPARIN 40MG/0.4ML SYR SUBCUT SCH (08:58)
[2017-12-08] MEDS: ASPIRIN 81MG EC TABLET PO SCH (08:58)
[2017-12-08] MEDS: THIAMINE HCL 100MG TABLET PO SCH (08:58)
[2017-12-08] MEDS: FOLIC ACID 1MG TABLET PO SCH (08:58)
[2017-12-08] MEDS: MULTIVITAMINS,THER W-MINERALS TABLET PO SCH (08:58)
[2017-12-08] MEDS: DOCUSATE SODIUM 100MG CAPSULE PO PRN (08:58)
[2017-12-08] MEDS: BUDESONIDE 0.5MG/2ML NEB HHN SCH (09:22)
[2017-12-08] MEDS ORDERED: POTASSIUM CHLORIDE 20MEQ/PACKET NG NR (10:45)
[2017-12-09] VITALS (93 sets, daily range): BP systolic 71–150; BP diastolic 39–81
[2017-12-09] MEDS: IPRATROPIUM/ALBUTEROL 0.5-3(2.5)MG/3ML NEB HHN SCH ×6 (00:25→20:28)
[2017-12-09] MEDS: NOREPINEPHRINE 8 MG in SODIUM CHLORIDE 0.9% 250 ML IV PRN ×2 (00:31→07:18)
[2017-12-09] MEDS: MIDAZOLAM HCL 100 MG in DEXT 5% WATER 80 ML IV PRN (00:49)
[2017-12-09 04:45] LABS: BASOPHILS % 0.2 % (0.0-2.0); EOSINOPHILS % 5.2 % (0.0-5.0); HEMATOCRIT. 37.7 % (42.0-52.0); HEMOGLOBIN. 12.4 g/dL (14.0-18.0); LYMPHOCYTES % 14.5 % (20.0-50.0); MEAN CORPUSCULAR HEMOGLOBIN 27.4 pg (28.0-32.0); MEAN CORPUSCULAR VOLUME 83.2 fL (80.0-94.0); MEAN PLATELET VOLUME 7.4 fl (7.4-10.4); MONOCYTES % 11.5 % (2.0-8.0); NEUTROPHILS % 68.6 % (40.0-76.0); PLATELET 178 x1000/uL (130-400); RED BLOOD CELL COUNT 4.53 mill/uL (4.7-6.1); RED CELL DISTRIBUTION WIDTH 14.8 % (11.6-14.6)
[2017-12-09 04:53] LABS: CHLORIDE 104 mEq/L (98-107)
[2017-12-09] MEDS: BLOOD SUGAR DIAGNOSTIC STRIP TEST SCH ×4 (05:00→23:36)
[2017-12-09] MEDS: MEROPENEM 1,000 MG in SODIUM CHLORIDE 0.9% 100 ML IV SCH ×3 (05:49→22:42)
[2017-12-09] MEDS: INSULIN LISPRO 100 UNITS/ML SUBCUT SCH ×3 (06:00→17:46)
[2017-12-09] MEDS: VANCOMYCIN 1 G PREMIX 200 ML IV SCH ×3 (06:32→21:17)
[2017-12-09] MEDS ORDERED: POTASSIUM CHLORIDE 20MEQ/PACKET NG SCH (08:00)
[2017-12-09] MEDS: LEVETIRACETAM 500MG PREMIX 100 ML IV SCH ×2 (08:00→20:01)
[2017-12-09] MEDS: PANTOPRAZOLE SODIUM 40 MG/VIAL IV SCH (08:24)
[2017-12-09] MEDS: RISPERIDONE 1MG TABLET PO SCH ×2 (08:25→20:38)
[2017-12-09] MEDS: ENOXAPARIN 40MG/0.4ML SYR SUBCUT SCH (08:25)
[2017-12-09] MEDS: MULTIVITAMINS,THER W-MINERALS TABLET PO SCH (08:25)
[2017-12-09] MEDS: FOLIC ACID 1MG TABLET PO SCH (08:25)
[2017-12-09] MEDS: THIAMINE HCL 100MG TABLET PO SCH (08:25)
[2017-12-09] MEDS: ACETAMINOPHEN 325MG TABLET PO PRN (08:26)
[2017-12-09] MEDS: ASPIRIN 81MG TABLET NG SCH (08:43)
[2017-12-09] MEDS: METOCLOPRAMIDE HCL 10MG/2ML VIAL IV SCH ×3 (08:55→16:16)
[2017-12-09 09:10] LABS: BG BASE EXCESS 9.6 mmol/L (-2.0-2.0); BG CARBOXYHEMOGLOBIN 1.2 % (0.5-1.5); BG DEOXYHEMOGLOBIN 3.5 % (0.0-5.0); BG FRACTION INSPIRED OXYGEN 55; BG HCO3 ACT 35.1 mmol/L (22.0-26.0); BG METHEMOGLOBIN 0.3 % (0.0-1.5); BG OXYGEN SATURATION 96.4 % (92.0-98.5); BG PCO2 50.1 mmHg (35.0-45.0); BG PH 7.463 (7.350-7.450); BG PO2 83.8 mmHg (75.0-100.0); BG SAMPLE SITE RIGHT RADIAL; BG TIDAL VOLUME(mL) 500 mL; BG TOTAL HEMOGLOBIN 14.2 g/dL (12.0-18.0); BG VENT MODE VENT - A/C; BG VENT RATE 20 set
[2017-12-09] MEDS ORDERED: SODIUM CHLORIDE 0.45% 250 ML IV ONE (14:00)
[2017-12-09] MEDS ORDERED: KCL 20MEQ/100ML PREMIX 100 ML IV NR (15:00)
[2017-12-09] MEDS: FENTANYL CITRATE/PF 1,000 MCG in SODIUM CHLORIDE 0.9% 80 ML IV PRN (15:31)
[2017-12-09 15:58] LABS: PHOSPHORUS 2.5 mg/dL (2.5-4.9)
[2017-12-09] MEDS: NOREPINEPHRINE 8 MG in SODIUM CHLORIDE 0.9% 242 ML IV PRN (16:25)
[2017-12-10] VITALS (59 sets, daily range): BP systolic 74–201; BP diastolic 47–117
[2017-12-10] MEDS: METOCLOPRAMIDE HCL 10MG/2ML VIAL IV SCH ×4 (00:06→18:00)
[2017-12-10] MEDS: IPRATROPIUM/ALBUTEROL 0.5-3(2.5)MG/3ML NEB HHN SCH ×6 (00:28→20:57)
[2017-12-10] MEDS: NOREPINEPHRINE 8 MG in SODIUM CHLORIDE 0.9% 242 ML IV PRN ×2 (02:37→21:57)
[2017-12-10] MEDS: MEROPENEM 1,000 MG in SODIUM CHLORIDE 0.9% 100 ML IV SCH ×3 (05:46→21:57)
[2017-12-10] MEDS: MIDAZOLAM HCL 100 MG in DEXT 5% WATER 80 ML IV PRN (05:47)
[2017-12-10] MEDS: BLOOD SUGAR DIAGNOSTIC STRIP TEST SCH ×3 (05:47→17:00)
[2017-12-10] MEDS: INSULIN LISPRO 100 UNITS/ML SUBCUT SCH ×4 (06:00→18:00)
[2017-12-10 06:37] LABS: BASOPHILS % 0.2 % (0.0-2.0); EOSINOPHILS % 5.9 % (0.0-5.0); HEMATOCRIT. 36.3 % (42.0-52.0); HEMOGLOBIN. 11.9 g/dL (14.0-18.0); LYMPHOCYTES % 13.6 % (20.0-50.0); MEAN CORPUSCULAR HEMOGLOBIN 27.4 pg (28.0-32.0); MEAN CORPUSCULAR VOLUME 83.3 fL (80.0-94.0); MEAN PLATELET VOLUME 7.7 fl (7.4-10.4); MONOCYTES % 12.7 % (2.0-8.0); NEUTROPHILS % 67.6 % (40.0-76.0); PLATELET 160 x1000/uL (130-400); RED BLOOD CELL COUNT 4.36 mill/uL (4.7-6.1); RED CELL DISTRIBUTION WIDTH 14.9 % (11.6-14.6)
[2017-12-10] MEDS: VANCOMYCIN 1 G PREMIX 200 ML IV SCH ×3 (06:47→21:57)
[2017-12-10] MEDS: ENOXAPARIN 40MG/0.4ML SYR SUBCUT SCH (09:00)
[2017-12-10 09:03] LABS: BG BASE EXCESS 5.2 mmol/L (-2.0-2.0); BG CARBOXYHEMOGLOBIN 0.4 % (0.5-1.5); BG DEOXYHEMOGLOBIN 2.1 % (0.0-5.0); BG FRACTION INSPIRED OXYGEN 55; BG HCO3 ACT 30.3 mmol/L (22.0-26.0); BG METHEMOGLOBIN 0.4 % (0.0-1.5); BG OXYGEN SATURATION 97.9 % (92.0-98.5); BG OXYHEMOGLOBIN 97.1 % (94.0-97.0); BG PCO2 46.7 mmHg (35.0-45.0); BG SAMPLE SITE RIGHT RADIAL; BG TIDAL VOLUME(mL) 500 mL; BG TOTAL HEMOGLOBIN 11.9 g/dL (12.0-18.0); BG VENT MODE VENT - A/C; BG VENT RATE 20 set
[2017-12-10 09:45] LABS: CHLORIDE 106 mEq/L (98-107)
[2017-12-10] MEDS: LEVETIRACETAM 500MG PREMIX 100 ML IV SCH ×2 (10:07→19:53)
[2017-12-10] MEDS: MULTIVITAMINS,THER W-MINERALS TABLET PO SCH (10:07)
[2017-12-10] MEDS: RISPERIDONE 1MG TABLET PO SCH ×2 (10:08→21:57)
[2017-12-10] MEDS: FOLIC ACID 1MG TABLET PO SCH (10:08)
[2017-12-10] MEDS: THIAMINE HCL 100MG TABLET PO SCH (10:09)
[2017-12-10] MEDS: PANTOPRAZOLE SODIUM 40 MG/VIAL IV SCH (10:09)
[2017-12-10] MEDS: ASPIRIN 81MG TABLET NG SCH (10:09)
[2017-12-10] MEDS: DEXT 5%/0.45% NACL 1000ML 1,000 ML IV SCH (12:51)
[2017-12-10] MEDS: LORAZEPAM 2MG/ML CPJ IV PRN ×2 (13:47→22:29)
[2017-12-10] MEDS: MORPHINE SULFATE 4 MG/ML CPJ (NOT FOR IM USE) IV PRN ×2 (13:47→19:49)
[2017-12-10] MEDS: ONDANSETRON HCL 4MG/2ML VIAL IV PRN (16:45)
[2017-12-10] MEDS: FENTANYL CITRATE/PF 500 MCG in SODIUM CHLORIDE 0.9% 40 ML IV PRN (23:09)
[2017-12-11] VITALS (86 sets, daily range): BP systolic 63–151; BP diastolic 42–86
[2017-12-11] MEDS: BLOOD SUGAR DIAGNOSTIC STRIP TEST SCH ×4 (00:39→18:00)
[2017-12-11] MEDS: IPRATROPIUM/ALBUTEROL 0.5-3(2.5)MG/3ML NEB HHN SCH ×7 (01:10→23:48)
[2017-12-11] MEDS: DIPHENHYDRAMINE 50MG/ML VIAL IV PRN ×2 (03:41→22:29)
[2017-12-11] MEDS: MORPHINE SULFATE 4 MG/ML CPJ (NOT FOR IM USE) IV PRN (03:42)
[2017-12-11] MEDS: MEROPENEM 1,000 MG in SODIUM CHLORIDE 0.9% 100 ML IV SCH ×3 (05:22→21:18)
[2017-12-11] MEDS: VANCOMYCIN 1 G PREMIX 200 ML IV SCH ×3 (05:22→21:12)
[2017-12-11 05:49] LABS: BASOPHILS % 0.1 % (0.0-2.0); EOSINOPHILS % 3.9 % (0.0-5.0); HEMATOCRIT. 32.5 % (42.0-52.0); LYMPHOCYTES % 9.8 % (20.0-50.0); MEAN CORPUSCULAR HEMOGLOBIN 27.8 pg (28.0-32.0); MEAN CORPUSCULAR VOLUME 82.3 fL (80.0-94.0); MEAN PLATELET VOLUME 7.3 fl (7.4-10.4); NEUTROPHILS % 73.2 % (40.0-76.0); PLATELET 166 x1000/uL (130-400); RED BLOOD CELL COUNT 3.95 mill/uL (4.7-6.1); RED CELL DISTRIBUTION WIDTH 14.1 % (11.6-14.6)
[2017-12-11 05:56] LABS: CHLORIDE 105 mEq/L (98-107)
[2017-12-11] MEDS: INSULIN LISPRO 100 UNITS/ML SUBCUT SCH ×4 (06:00→18:00)
[2017-12-11] MEDS: LEVETIRACETAM 500MG PREMIX 100 ML IV SCH ×2 (06:33→18:31)
[2017-12-11] MEDS: FENTANYL CITRATE/PF 500 MCG in SODIUM CHLORIDE 0.9% 40 ML IV PRN ×2 (06:42→16:27)
[2017-12-11] MEDS: LORAZEPAM 2MG/ML CPJ IV PRN (08:31)
[2017-12-11] MEDS: MULTIVITAMINS,THER W-MINERALS TABLET PO SCH (09:32)
[2017-12-11] MEDS: PANTOPRAZOLE SODIUM 40 MG/VIAL IV SCH (09:32)
[2017-12-11] MEDS: THIAMINE HCL 100MG TABLET PO SCH (09:32)
[2017-12-11] MEDS: FOLIC ACID 1MG TABLET PO SCH (09:33)
[2017-12-11] MEDS: DOCUSATE SODIUM 100MG CAPSULE PO PRN (09:33)
[2017-12-11] MEDS: RISPERIDONE 1MG TABLET PO SCH (09:33)
[2017-12-11] MEDS: ASPIRIN 81MG TABLET NG SCH (09:33)
[2017-12-11] MEDS: ENOXAPARIN 40MG/0.4ML SYR SUBCUT SCH (09:34)
[2017-12-11] MEDS: NOREPINEPHRINE 8 MG in SODIUM CHLORIDE 0.9% 242 ML IV PRN ×2 (10:02→22:29)
[2017-12-11] MEDS: RISPERIDONE 1MG TABLET NG SCH ×2 (12:29→21:12)
[2017-12-11] MEDS: DEXT 5%/0.45% NACL 1000ML 1,000 ML IV SCH (12:31)
[2017-12-11] MEDS ORDERED: MIDODRINE HCL 2.5MG TABLET PO SCH (13:00)
[2017-12-11] MEDS ORDERED: MIDODRINE HCL 2.5MG TABLET NG SCH (15:15)
[2017-12-11] MEDS: MIDAZOLAM HCL 100 MG in DEXT 5% WATER 80 ML IV PRN (16:27)
[2017-12-11] MEDS: MIDODRINE HCL 2.5MG TABLET NG SCH (21:34)
[2017-12-12] VITALS (66 sets, daily range): BP systolic 76–174; BP diastolic 44–119
[2017-12-12] MEDS: FENTANYL CITRATE/PF 500 MCG in SODIUM CHLORIDE 0.9% 40 ML IV PRN ×3 (00:01→21:11)
[2017-12-12] MEDS: BLOOD SUGAR DIAGNOSTIC STRIP TEST SCH ×4 (00:14→18:02)
[2017-12-12] MEDS: IPRATROPIUM/ALBUTEROL 0.5-3(2.5)MG/3ML NEB HHN SCH ×5 (04:35→20:41)
[2017-12-12] MEDS: INSULIN LISPRO 100 UNITS/ML SUBCUT SCH ×4 (05:44→18:00)
[2017-12-12] MEDS: DEXT 5%/0.45% NACL 1000ML 1,000 ML IV SCH ×2 (05:46→13:00)
[2017-12-12 05:53] LABS: BASOPHILS % 0.1 % (0.0-2.0); EOSINOPHILS % 4.2 % (0.0-5.0); HEMATOCRIT 34.8 % (42.0-52.0); HEMATOCRIT. 34.8 % (42.0-52.0); HEMOGLOBIN 11.6 g/dL (14.0-18.0); HEMOGLOBIN. 11.6 g/dL (14.0-18.0); LYMPHOCYTES % 11.6 % (20.0-50.0); MEAN CORPUSCULAR HEMOGLOBIN 27.5 pg (28.0-32.0); MEAN CORPUSCULAR VOLUME 82.3 fL (80.0-94.0); MEAN PLATELET VOLUME 7.6 fl (7.4-10.4); MONOCYTES % 10.5 % (2.0-8.0); NEUTROPHILS % 73.6 % (40.0-76.0); PLATELET 181 x1000/uL (130-400); RED BLOOD CELL COUNT 4.23 mill/uL (4.7-6.1); RED CELL DISTRIBUTION WIDTH 14.5 % (11.6-14.6)
[2017-12-12 05:57] LABS: INR 1.1; PARTIAL THROMBOPLASTIN TIME 32.4 sec (23.4-31.0); PROTHROMBIN TIME 11.3 sec (9.4-11.6)
[2017-12-12 06:01] LABS: CHLORIDE 108 mEq/L (98-107)
[2017-12-12] MEDS: LEVETIRACETAM 500MG PREMIX 100 ML IV SCH ×2 (06:25→19:53)
[2017-12-12] MEDS: PANTOPRAZOLE SODIUM 40 MG/VIAL IV SCH (09:49)
[2017-12-12] MEDS: THIAMINE HCL 100MG TABLET PO SCH (09:49)
[2017-12-12] MEDS: MULTIVITAMINS,THER W-MINERALS TABLET PO SCH (09:49)
[2017-12-12] MEDS: RISPERIDONE 1MG TABLET NG SCH ×2 (09:49→21:44)
[2017-12-12] MEDS: FOLIC ACID 1MG TABLET PO SCH (09:49)
[2017-12-12] MEDS: MIDODRINE HCL 2.5MG TABLET NG SCH ×3 (09:50→18:25)
[2017-12-12] MEDS: ASPIRIN 81MG TABLET NG SCH (09:50)
[2017-12-12] MEDS ORDERED: PHENYLEPHRINE HCL 1% 15 ML NASAL SPRAY ONE (13:19)
[2017-12-12] MEDS ORDERED: FENTANYL CITRATE/PF 50MCG/ML 2ML VIAL ONE (14:18)
[2017-12-12] MEDS ORDERED: PROPOFOL 200MG/20ML VIAL IV ONE (14:18)
[2017-12-12] MEDS ORDERED: MIDAZOLAM HCL 2 MG/2 ML VIAL ONE (14:18)
[2017-12-12] MEDS ORDERED: ROCURONIUM BROMIDE 10MG/ML VIAL 5ML IV ONE ×2 (14:18→15:08)
[2017-12-12] MEDS: MIDAZOLAM HCL 100 MG in DEXT 5% WATER 80 ML IV PRN (18:39)
[2017-12-12] MEDS: NOREPINEPHRINE 8 MG in SODIUM CHLORIDE 0.9% 242 ML IV PRN (19:53)
[2017-12-12] MEDS: ACETAMINOPHEN 325MG TABLET PO PRN (21:44)
[2017-12-13] VITALS (68 sets, daily range): BP systolic 77–163; BP diastolic 37–106
[2017-12-13] MEDS: IPRATROPIUM/ALBUTEROL 0.5-3(2.5)MG/3ML NEB HHN SCH ×6 (00:14→20:32)
[2017-12-13] MEDS: FENTANYL CITRATE/PF 500 MCG in SODIUM CHLORIDE 0.9% 40 ML IV PRN ×2 (04:07→20:56)
[2017-12-13] MEDS: INSULIN LISPRO 100 UNITS/ML SUBCUT SCH ×5 (05:37→23:44)
[2017-12-13] MEDS: BLOOD SUGAR DIAGNOSTIC STRIP TEST SCH ×5 (05:38→23:38)
[2017-12-13] MEDS: NOREPINEPHRINE 8 MG in SODIUM CHLORIDE 0.9% 242 ML IV PRN ×2 (05:51→15:23)
[2017-12-13 05:54] LABS: INR 1.2; PARTIAL THROMBOPLASTIN TIME 33.1 sec (23.4-31.0); PROTHROMBIN TIME 12.5 sec (9.4-11.6)
[2017-12-13] MEDS: LEVETIRACETAM 500MG PREMIX 100 ML IV SCH (06:06)
[2017-12-13 07:08] LABS: CHLORIDE 106 mEq/L (98-107)
[2017-12-13 07:09] LABS: PHOSPHORUS 3.1 mg/dL (2.5-4.9)
[2017-12-13 07:18] LABS: HEMATOCRIT. 34.9 % (42.0-52.0); HEMOGLOBIN. 11.5 g/dL (14.0-18.0); MEAN CORPUSCULAR HEMOGLOBIN 27.2 pg (28.0-32.0); MEAN CORPUSCULAR VOLUME 82.8 fL (80.0-94.0); MEAN PLATELET VOLUME 7.7 fl (7.4-10.4); PLATELET 182 x1000/uL (130-400); RED BLOOD CELL COUNT 4.22 mill/uL (4.7-6.1); RED CELL DISTRIBUTION WIDTH 14.1 % (11.6-14.6)
[2017-12-13] MEDS: FOLIC ACID 1MG TABLET PO SCH (09:00)
[2017-12-13] MEDS: ASPIRIN 81MG TABLET NG SCH (09:00)
[2017-12-13] MEDS: MULTIVITAMINS,THER W-MINERALS TABLET PO SCH (09:00)
[2017-12-13] MEDS: THIAMINE HCL 100MG TABLET PO SCH (09:00)
[2017-12-13 09:54] LABS: PLATELET ESTIMATE NORMAL
[2017-12-13] MEDS: PANTOPRAZOLE SODIUM 40 MG/VIAL IV SCH (10:21)
[2017-12-13] MEDS ORDERED: ALBUMIN HUMAN 25GM/100ML (25%) IV NR (10:30)
[2017-12-13] MEDS: RISPERIDONE 1MG TABLET NG SCH ×2 (10:34→20:39)
[2017-12-13] MEDS ORDERED: CEFAZOLIN 1000MG PREMIX 50 ML IV NR (11:00)
[2017-12-13] MEDS: MIDODRINE HCL 5MG TABLET NG SCH ×2 (13:00→20:45)
[2017-12-13] MEDS ORDERED: MIDAZOLAM HCL 5 MG/5 ML VIAL ONE (14:37)
[2017-12-13] MEDS ORDERED: FENTANYL CITRATE/PF 50MCG/ML 2ML VIAL ONE (14:38)
[2017-12-13] MEDS ORDERED: BACTERIOSTATIC SODIUM CHLORIDE 0.9% 30ML VIAL IJ ONE (15:41)
[2017-12-13] MEDS ORDERED: MIDAZOLAM HCL 5 MG/5 ML VIAL IV PRN (15:55)
[2017-12-13] MEDS: DIPHENHYDRAMINE 50MG/ML VIAL IV PRN (20:39)
[2017-12-13] MEDS: DEXT 5%/0.45% NACL 1000ML 1,000 ML IV SCH (20:40)
[2017-12-13] MEDS: METHYLPREDNISOLONE SOD SUCC 125 MG/2 ML VIAL IV SCH (23:38)
[2017-12-14] VITALS (51 sets, daily range): BP systolic 92–179; BP diastolic 51–105
[2017-12-14] MEDS: IPRATROPIUM/ALBUTEROL 0.5-3(2.5)MG/3ML NEB HHN SCH ×6 (00:13→19:41)
[2017-12-14] MEDS: NOREPINEPHRINE 8 MG in SODIUM CHLORIDE 0.9% 242 ML IV PRN ×2 (00:43→09:53)
[2017-12-14] MEDS: MIDAZOLAM HCL 100 MG in DEXT 5% WATER 80 ML IV PRN (00:46)
[2017-12-14] MEDS: DIPHENHYDRAMINE 50MG/ML VIAL IV SCH ×4 (00:48→21:20)
[2017-12-14 05:25] LABS: HEMATOCRIT. 37.5 % (42.0-52.0); HEMOGLOBIN. 12.3 g/dL (14.0-18.0); MEAN CORPUSCULAR HEMOGLOBIN 27.4 pg (28.0-32.0); MEAN CORPUSCULAR VOLUME 83.3 fL (80.0-94.0); MEAN PLATELET VOLUME 7.4 fl (7.4-10.4); PLATELET 167 x1000/uL (130-400); RED CELL DISTRIBUTION WIDTH 14.4 % (11.6-14.6)
[2017-12-14 05:35] LABS: CHLORIDE 104 mEq/L (98-107)
[2017-12-14] MEDS: METHYLPREDNISOLONE SOD SUCC 125 MG/2 ML VIAL IV SCH (06:21)
[2017-12-14] MEDS: BLOOD SUGAR DIAGNOSTIC STRIP TEST SCH ×4 (06:21→23:45)
[2017-12-14] MEDS: INSULIN LISPRO 100 UNITS/ML SUBCUT SCH ×3 (06:31→23:45)
[2017-12-14] MEDS: FENTANYL CITRATE/PF 500 MCG in SODIUM CHLORIDE 0.9% 40 ML IV PRN ×2 (07:23→22:32)
[2017-12-14 09:14] LABS: PLATELET ESTIMATE NORMAL
[2017-12-14 09:22] LABS: BG BASE EXCESS 1.2 mmol/L (-2.0-2.0); BG CARBOXYHEMOGLOBIN 0.5 % (0.5-1.5); BG DEOXYHEMOGLOBIN 5.8 % (0.0-5.0); BG FRACTION INSPIRED OXYGEN 50; BG HCO3 ACT 26.7 mmol/L (22.0-26.0); BG METHEMOGLOBIN 0.3 % (0.0-1.5); BG OXYGEN SATURATION 94.2 % (92.0-98.5); BG OXYHEMOGLOBIN 93.4 % (94.0-97.0); BG PCO2 45.6 mmHg (35.0-45.0); BG PH 7.385 (7.350-7.450); BG PO2 73.3 mmHg (75.0-100.0); BG SAMPLE SITE RIGHT RADIAL; BG TIDAL VOLUME(mL) 500 mL; BG TOTAL HEMOGLOBIN 12.9 g/dL (12.0-18.0); BG VENT MODE VENT - A/C; BG VENT RATE 20 set
[2017-12-14] MEDS ORDERED: ALBUMIN HUMAN 12.5G/250ML (5%) IV NR (10:30)
[2017-12-14] MEDS: MULTIVITAMINS,THER W-MINERALS TABLET PO SCH (11:48)
[2017-12-14] MEDS: PANTOPRAZOLE SODIUM 40 MG/VIAL IV SCH (11:48)
[2017-12-14] MEDS: ASPIRIN 81MG TABLET NG SCH (11:48)
[2017-12-14] MEDS: FOLIC ACID 1MG TABLET PO SCH (11:49)
[2017-12-14] MEDS: RISPERIDONE 1MG TABLET NG SCH ×2 (11:49→21:20)
[2017-12-14] MEDS: THIAMINE HCL 100MG TABLET PO SCH (11:49)
[2017-12-14] MEDS: MIDODRINE HCL 5MG TABLET NG SCH ×3 (11:50→17:36)
[2017-12-14] MEDS: MORPHINE SULFATE 4 MG/ML CPJ (NOT FOR IM USE) IV PRN ×2 (13:23→23:40)
[2017-12-14] MEDS: LEVETIRACETAM 500MG/5ML CUP GT SCH (21:20)
[2017-12-14] MEDS: LORAZEPAM 2MG/ML CPJ IV PRN (23:37)
[2017-12-15] VITALS (31 sets, daily range): BP systolic 97–155; BP diastolic 56–96
[2017-12-15] MEDS: IPRATROPIUM/ALBUTEROL 0.5-3(2.5)MG/3ML NEB HHN SCH ×6 (00:07→20:46)
[2017-12-15] MEDS: DIPHENHYDRAMINE 50MG/ML VIAL IV SCH ×4 (01:08→20:15)
[2017-12-15 05:49] LABS: HEMATOCRIT. 32.5 % (42.0-52.0); HEMOGLOBIN. 10.9 g/dL (14.0-18.0); MEAN CORPUSCULAR HEMOGLOBIN 27.3 pg (28.0-32.0); MEAN CORPUSCULAR VOLUME 81.3 fL (80.0-94.0); MEAN PLATELET VOLUME 7.5 fl (7.4-10.4); PLATELET 161 x1000/uL (130-400); RED CELL DISTRIBUTION WIDTH 14.1 % (11.6-14.6)
[2017-12-15] MEDS: INSULIN LISPRO 100 UNITS/ML SUBCUT SCH ×4 (06:00→23:41)
[2017-12-15] MEDS: BLOOD SUGAR DIAGNOSTIC STRIP TEST SCH ×4 (06:11→23:40)
[2017-12-15 06:19] LABS: CHLORIDE 109 mEq/L (98-107)
[2017-12-15] MEDS: HALOPERIDOL LACTATE 5MG/ML VIAL IM PRN ×3 (06:47→20:16)
[2017-12-15] MEDS: MULTIVITAMINS,THER W-MINERALS TABLET PO SCH (10:34)
[2017-12-15] MEDS: MORPHINE SULFATE 4 MG/ML CPJ (NOT FOR IM USE) IV PRN ×3 (10:34→23:40)
[2017-12-15] MEDS: RISPERIDONE 1MG TABLET NG SCH ×2 (10:34→22:47)
[2017-12-15] MEDS: ENOXAPARIN 40MG/0.4ML SYR SUBCUT SCH (10:34)
[2017-12-15] MEDS: PANTOPRAZOLE SODIUM 40 MG/VIAL IV SCH (10:34)
[2017-12-15] MEDS: LEVETIRACETAM 500MG/5ML CUP GT SCH ×2 (10:34→22:47)
[2017-12-15] MEDS: ASPIRIN 81MG TABLET NG SCH (10:35)
[2017-12-15] MEDS: MIDODRINE HCL 5MG TABLET NG SCH ×3 (10:35→19:30)
[2017-12-15] MEDS: FOLIC ACID 1MG TABLET PO SCH (10:35)
[2017-12-15] MEDS: THIAMINE HCL 100MG TABLET PO SCH (10:35)
[2017-12-15 13:04] LABS: PLATELET ESTIMATE NORMAL
[2017-12-16] VITALS (27 sets, daily range): BP systolic 87–125; BP diastolic 50–72
[2017-12-16] MEDS: IPRATROPIUM/ALBUTEROL 0.5-3(2.5)MG/3ML NEB HHN SCH ×6 (00:07→20:59)
[2017-12-16] MEDS: DIPHENHYDRAMINE 50MG/ML VIAL IV SCH ×4 (02:40→23:41)
[2017-12-16] MEDS: INSULIN LISPRO 100 UNITS/ML SUBCUT SCH ×3 (05:53→18:00)
[2017-12-16] MEDS: BLOOD SUGAR DIAGNOSTIC STRIP TEST SCH ×3 (05:53→18:35)
[2017-12-16 07:28] LABS: BG BASE EXCESS 2.5 mmol/L (-2.0-2.0); BG CARBOXYHEMOGLOBIN 0.3 % (0.5-1.5); BG DEOXYHEMOGLOBIN 1.2 % (0.0-5.0); BG HCO3 ACT 26.5 mmol/L (22.0-26.0); BG METHEMOGLOBIN 0.2 % (0.0-1.5); BG OXYGEN SATURATION 98.8 % (92.0-98.5); BG OXYHEMOGLOBIN 98.3 % (94.0-97.0); BG PCO2 38.8 mmHg (35.0-45.0); BG PH 7.453 (7.350-7.450); BG PO2 148.1 mmHg (75.0-100.0); BG SAMPLE SITE RIGHT RADIAL; BG TIDAL VOLUME(mL) 500 mL; BG VENT MODE VENT - A/C; BG VENT RATE 20 set
[2017-12-16] MEDS: THIAMINE HCL 100MG TABLET PO SCH (09:34)
[2017-12-16] MEDS: LEVETIRACETAM 500MG/5ML CUP GT SCH ×2 (10:13→21:53)
[2017-12-16] MEDS: MULTIVITAMINS,THER W-MINERALS TABLET PO SCH (10:14)
[2017-12-16] MEDS: ENOXAPARIN 40MG/0.4ML SYR SUBCUT SCH (10:14)
[2017-12-16] MEDS: PANTOPRAZOLE SODIUM 40 MG/VIAL IV SCH (10:14)
[2017-12-16] MEDS: FOLIC ACID 1MG TABLET PO SCH (10:14)
[2017-12-16] MEDS: MIDODRINE HCL 5MG TABLET NG SCH ×3 (10:15→18:35)
[2017-12-16] MEDS: ASPIRIN 81MG TABLET NG SCH (10:15)
[2017-12-16] MEDS: RISPERIDONE 1MG TABLET NG SCH ×2 (10:19→21:53)
[2017-12-16] MEDS: ONDANSETRON HCL 4MG/2ML VIAL IV PRN (12:46)
[2017-12-16] MEDS: LORAZEPAM 2MG/ML CPJ IV PRN (23:42)
[2017-12-17] VITALS (40 sets, daily range): BP systolic 82–130; BP diastolic 48–78
[2017-12-17] MEDS ORDERED: METOCLOPRAMIDE 10MG/10 ML UDC GT PRN
[2017-12-17] MEDS: IPRATROPIUM/ALBUTEROL 0.5-3(2.5)MG/3ML NEB HHN SCH ×7 (00:15→23:54)
[2017-12-17] MEDS: BLOOD SUGAR DIAGNOSTIC STRIP TEST SCH ×4 (00:28→18:01)
[2017-12-17] MEDS: DIPHENHYDRAMINE 50MG/ML VIAL IV SCH ×4 (01:30→21:54)
[2017-12-17] MEDS: INSULIN LISPRO 100 UNITS/ML SUBCUT SCH ×4 (06:00→18:00)
[2017-12-17 06:01] LABS: BASOPHILS % 0.1 % (0.0-2.0); EOSINOPHILS % 11.5 % (0.0-5.0); HEMATOCRIT. 34.1 % (42.0-52.0); HEMOGLOBIN. 11.3 g/dL (14.0-18.0); MEAN CORPUSCULAR HEMOGLOBIN 27.6 pg (28.0-32.0); MEAN CORPUSCULAR VOLUME 83.1 fL (80.0-94.0); MEAN PLATELET VOLUME 7.7 fl (7.4-10.4); MONOCYTES % 5.2 % (2.0-8.0); NEUTROPHILS % 71.2 % (40.0-76.0); PLATELET 178 x1000/uL (130-400); RED CELL DISTRIBUTION WIDTH 14.2 % (11.6-14.6)
[2017-12-17 06:31] LABS: CHLORIDE 110 mEq/L (98-107)
[2017-12-17] MEDS ORDERED: POTASSIUM CHLORIDE 20MEQ TABLET SR PO SCH (06:45)
[2017-12-17] MEDS ORDERED: POTASSIUM CHLORIDE INJ 40 MEQ in DEXT 5% WATER 250 ML IV NR (09:30)
[2017-12-17 09:37] LABS: BG BASE EXCESS 5.1 mmol/L (-2.0-2.0); BG CARBOXYHEMOGLOBIN 0.1 % (0.5-1.5); BG DEOXYHEMOGLOBIN 3.6 % (0.0-5.0); BG FRACTION INSPIRED OXYGEN 40; BG HCO3 ACT 28.9 mmol/L (22.0-26.0); BG METHEMOGLOBIN 0.3 % (0.0-1.5); BG OXYGEN SATURATION 96.4 % (92.0-98.5); BG PCO2 39.1 mmHg (35.0-45.0); BG PH 7.486 (7.350-7.450); BG PO2 87.4 mmHg (75.0-100.0); BG SAMPLE SITE RIGHT RADIAL; BG TIDAL VOLUME(mL) 500 mL; BG TOTAL HEMOGLOBIN 11.4 g/dL (12.0-18.0); BG VENT MODE VENT - A/C; BG VENT RATE 18 set
[2017-12-17] MEDS: PANTOPRAZOLE SODIUM 40 MG/VIAL IV SCH (09:55)
[2017-12-17] MEDS: LEVETIRACETAM 500MG/5ML CUP GT SCH ×2 (09:55→21:54)
[2017-12-17] MEDS: RISPERIDONE 1MG TABLET NG SCH ×2 (09:56→21:54)
[2017-12-17] MEDS: ASPIRIN 81MG TABLET NG SCH (09:56)
[2017-12-17] MEDS: MULTIVITAMINS,THER W-MINERALS TABLET PO SCH (09:56)
[2017-12-17] MEDS: FOLIC ACID 1MG TABLET PO SCH (09:56)
[2017-12-17] MEDS: MIDODRINE HCL 5MG TABLET NG SCH ×3 (09:56→18:01)
[2017-12-17] MEDS: THIAMINE HCL 100MG TABLET PO SCH (09:56)
[2017-12-17] MEDS: ENOXAPARIN 40MG/0.4ML SYR SUBCUT SCH (09:57)
[2017-12-18] VITALS (43 sets, daily range): BP systolic 95–140; BP diastolic 49–85
[2017-12-18] MEDS: BLOOD SUGAR DIAGNOSTIC STRIP TEST SCH ×5 (00:33→23:33)
[2017-12-18] MEDS: DIPHENHYDRAMINE 50MG/ML VIAL IV SCH ×4 (01:30→19:22)
[2017-12-18] MEDS: LORAZEPAM 2MG/ML CPJ IV PRN ×2 (03:26→22:46)
[2017-12-18] MEDS: IPRATROPIUM/ALBUTEROL 0.5-3(2.5)MG/3ML NEB HHN SCH ×5 (05:06→20:51)
[2017-12-18 05:48] LABS: BASOPHILS % 0.3 % (0.0-2.0); EOSINOPHILS % 12.3 % (0.0-5.0); HEMATOCRIT. 32.7 % (42.0-52.0); HEMOGLOBIN. 10.9 g/dL (14.0-18.0); LYMPHOCYTES % 10.2 % (20.0-50.0); MEAN CORPUSCULAR HEMOGLOBIN 27.6 pg (28.0-32.0); MEAN CORPUSCULAR VOLUME 82.7 fL (80.0-94.0); MEAN PLATELET VOLUME 7.9 fl (7.4-10.4); MONOCYTES % 5.3 % (2.0-8.0); NEUTROPHILS % 71.9 % (40.0-76.0); PLATELET 208 x1000/uL (130-400); RED BLOOD CELL COUNT 3.95 mill/uL (4.7-6.1); RED CELL DISTRIBUTION WIDTH 14.4 % (11.6-14.6)
[2017-12-18] MEDS: INSULIN LISPRO 100 UNITS/ML SUBCUT SCH ×4 (06:00→17:54)
[2017-12-18 06:14] LABS: CHLORIDE 111 mEq/L (98-107)
[2017-12-18] MEDS: PANTOPRAZOLE SODIUM 40 MG/VIAL IV SCH (09:39)
[2017-12-18] MEDS: ASPIRIN 81MG TABLET NG SCH (09:43)
[2017-12-18] MEDS: FOLIC ACID 1MG TABLET PO SCH (09:43)
[2017-12-18] MEDS: LEVETIRACETAM 500MG/5ML CUP GT SCH ×2 (09:43→21:33)
[2017-12-18] MEDS: MIDODRINE HCL 5MG TABLET NG SCH ×3 (09:43→18:53)
[2017-12-18] MEDS: RISPERIDONE 1MG TABLET NG SCH ×2 (09:43→21:32)
[2017-12-18] MEDS: THIAMINE HCL 100MG TABLET PO SCH (09:44)
[2017-12-18] MEDS: MULTIVITAMINS,THER W-MINERALS TABLET PO SCH (09:44)
[2017-12-18] MEDS: ENOXAPARIN 40MG/0.4ML SYR SUBCUT SCH (09:44)
[2017-12-18 12:08] LABS: BG BASE EXCESS -2.1 mmol/L (-2.0-2.0); BG CARBOXYHEMOGLOBIN 0.3 % (0.5-1.5); BG DEOXYHEMOGLOBIN 2.5 % (0.0-5.0); BG HCO3 ACT 20.9 mmol/L (22.0-26.0); BG METHEMOGLOBIN 0.2 % (0.0-1.5); BG OXYGEN SATURATION 97.5 % (92.0-98.5); BG PCO2 30.4 mmHg (35.0-45.0); BG PH 7.456 (7.350-7.450); BG PO2 107.4 mmHg (75.0-100.0); BG SAMPLE SITE RIGHT RADIAL; BG TIDAL VOLUME(mL) 500 mL; BG TOTAL HEMOGLOBIN 11.7 g/dL (12.0-18.0); BG VENT MODE VENT - SIMV; BG VENT RATE 14 set
[2017-12-18 22:39] LABS: BG CARBOXYHEMOGLOBIN 0.3 % (0.5-1.5); BG DEOXYHEMOGLOBIN 1.7 % (0.0-5.0); BG FRACTION INSPIRED OXYGEN 40; BG HCO3 ACT 27.3 mmol/L (22.0-26.0); BG METHEMOGLOBIN 0.1 % (0.0-1.5); BG OXYGEN SATURATION 98.3 % (92.0-98.5); BG OXYHEMOGLOBIN 97.9 % (94.0-97.0); BG PCO2 40.4 mmHg (35.0-45.0); BG PH 7.447 (7.350-7.450); BG PO2 141.4 mmHg (75.0-100.0); BG SAMPLE SITE RIGHT RADIAL; BG TOTAL HEMOGLOBIN 11.7 g/dL (12.0-18.0); BG VENT MODE T-TUBE
[2017-12-19] VITALS (32 sets, daily range): BP systolic 91–154; BP diastolic 33–91
[2017-12-19] MEDS: DIPHENHYDRAMINE 50MG/ML VIAL IV SCH ×4 (00:38→19:57)
[2017-12-19] MEDS: IPRATROPIUM/ALBUTEROL 0.5-3(2.5)MG/3ML NEB HHN SCH ×6 (00:52→20:13)
[2017-12-19] MEDS: BLOOD SUGAR DIAGNOSTIC STRIP TEST SCH ×4 (05:54→23:06)
[2017-12-19] MEDS: INSULIN LISPRO 100 UNITS/ML SUBCUT SCH ×5 (05:54→23:06)
[2017-12-19] MEDS: PANTOPRAZOLE SODIUM 40 MG/VIAL IV SCH (08:12)
[2017-12-19] MEDS: ENOXAPARIN 40MG/0.4ML SYR SUBCUT SCH (08:13)
[2017-12-19] MEDS: ASPIRIN 81MG TABLET NG SCH (08:13)
[2017-12-19] MEDS: RISPERIDONE 1MG TABLET NG SCH ×2 (08:14→20:46)
[2017-12-19] MEDS: MIDODRINE HCL 5MG TABLET NG SCH ×3 (08:14→17:55)
[2017-12-19] MEDS: MULTIVITAMINS,THER W-MINERALS TABLET PO SCH (08:14)
[2017-12-19] MEDS: FOLIC ACID 1MG TABLET PO SCH (08:14)
[2017-12-19] MEDS: THIAMINE HCL 100MG TABLET PO SCH (08:14)
[2017-12-19] MEDS: LEVETIRACETAM 500MG/5ML CUP GT SCH ×2 (08:48→20:46)
[2017-12-20] VITALS (15 sets, daily range): BP systolic 92–125; BP diastolic 49–107
[2017-12-20] MEDS: IPRATROPIUM/ALBUTEROL 0.5-3(2.5)MG/3ML NEB HHN SCH ×6 (00:33→20:09)
[2017-12-20] MEDS: DIPHENHYDRAMINE 50MG/ML VIAL IV SCH ×4 (01:54→18:49)
[2017-12-20] MEDS: MORPHINE SULFATE 4 MG/ML CPJ (NOT FOR IM USE) IV PRN (03:21)
[2017-12-20] MEDS: LORAZEPAM 2MG/ML CPJ IV PRN (04:39)
[2017-12-20] MEDS: BLOOD SUGAR DIAGNOSTIC STRIP TEST SCH ×3 (05:42→18:42)
[2017-12-20] MEDS: INSULIN LISPRO 100 UNITS/ML SUBCUT SCH ×3 (05:42→18:00)
[2017-12-20 08:12] LABS: HEMATOCRIT. 33.6 % (42.0-52.0); HEMOGLOBIN. 11.2 g/dL (14.0-18.0); MEAN CORPUSCULAR HEMOGLOBIN 27.7 pg (28.0-32.0); MEAN CORPUSCULAR VOLUME 82.5 fL (80.0-94.0); MEAN PLATELET VOLUME 7.7 fl (7.4-10.4); PLATELET 255 x1000/uL (130-400); RED BLOOD CELL COUNT 4.07 mill/uL (4.7-6.1); RED CELL DISTRIBUTION WIDTH 14.6 % (11.6-14.6)
[2017-12-20 08:45] LABS: CHLORIDE 108 mEq/L (98-107)
[2017-12-20] MEDS: ENOXAPARIN 40MG/0.4ML SYR SUBCUT SCH (09:16)
[2017-12-20] MEDS: PANTOPRAZOLE SODIUM 40 MG/VIAL IV SCH (09:16)
[2017-12-20] MEDS: LEVETIRACETAM 500MG/5ML CUP GT SCH ×2 (09:16→20:15)
[2017-12-20] MEDS: RISPERIDONE 1MG TABLET NG SCH ×2 (09:16→20:15)
[2017-12-20] MEDS: ASPIRIN 81MG TABLET NG SCH (09:17)
[2017-12-20] MEDS: FOLIC ACID 1MG TABLET PO SCH (09:17)
[2017-12-20] MEDS: MULTIVITAMINS,THER W-MINERALS TABLET PO SCH (09:17)
[2017-12-20] MEDS: MIDODRINE HCL 5MG TABLET NG SCH ×3 (09:17→18:50)
[2017-12-20] MEDS: THIAMINE HCL 100MG TABLET PO SCH (09:17)
[2017-12-20 13:59] LABS: PLATELET ESTIMATE NORMAL
[2017-12-20] MEDS: ONDANSETRON HCL 4MG/2ML VIAL IV PRN (20:30)
[2017-12-21] VITALS (13 sets, daily range): BP systolic 104–147; BP diastolic 54–97
[2017-12-21] MEDS: IPRATROPIUM/ALBUTEROL 0.5-3(2.5)MG/3ML NEB HHN SCH ×6 (00:26→21:02)
[2017-12-21] MEDS: DIPHENHYDRAMINE 50MG/ML VIAL IV SCH ×4 (01:08→18:36)
[2017-12-21] MEDS: INSULIN LISPRO 100 UNITS/ML SUBCUT SCH ×4 (06:00→18:00)
[2017-12-21] MEDS: BLOOD SUGAR DIAGNOSTIC STRIP TEST SCH ×4 (06:00→17:07)
[2017-12-21] MEDS: PANTOPRAZOLE SODIUM 40 MG/VIAL IV SCH (10:30)
[2017-12-21] MEDS: LEVETIRACETAM 500MG/5ML CUP GT SCH ×2 (10:30→20:26)
[2017-12-21] MEDS: RISPERIDONE 1MG TABLET NG SCH ×2 (10:31→20:26)
[2017-12-21] MEDS: DOCUSATE SODIUM 100MG CAPSULE PO PRN (10:31)
[2017-12-21] MEDS: THIAMINE HCL 100MG TABLET PO SCH (10:31)
[2017-12-21] MEDS: MULTIVITAMINS,THER W-MINERALS TABLET PO SCH (10:31)
[2017-12-21] MEDS: ASPIRIN 81MG TABLET NG SCH (10:31)
[2017-12-21] MEDS: FOLIC ACID 1MG TABLET PO SCH (10:31)
[2017-12-21] MEDS: MIDODRINE HCL 5MG TABLET NG SCH ×3 (10:31→18:36)
[2017-12-21] MEDS: ENOXAPARIN 40MG/0.4ML SYR SUBCUT SCH (10:32)
[2017-12-21] MEDS: ACETAMINOPHEN 325MG TABLET PO PRN (20:27)
[2017-12-22] VITALS (12 sets, daily range): BP systolic 97–133; BP diastolic 61–79
[2017-12-22] MEDS: DIPHENHYDRAMINE 50MG/ML VIAL IV SCH ×4 (00:59→20:22)
[2017-12-22] MEDS: INSULIN LISPRO 100 UNITS/ML SUBCUT SCH ×4 (06:00→17:35)
[2017-12-22] MEDS: BLOOD SUGAR DIAGNOSTIC STRIP TEST SCH ×5 (06:00→17:34)
[2017-12-22 06:22] LABS: MEAN CORPUSCULAR HEMOGLOBIN 27.4 pg (28.0-32.0); MEAN CORPUSCULAR VOLUME 82.2 fL (80.0-94.0); PLATELET 357 x1000/uL (130-400); RED BLOOD CELL COUNT 4.01 mill/uL (4.7-6.1); RED CELL DISTRIBUTION WIDTH 14.6 % (11.6-14.6)
[2017-12-22 06:25] LABS: CHLORIDE 107 mEq/L (98-107)
[2017-12-22] MEDS: IPRATROPIUM/ALBUTEROL 0.5-3(2.5)MG/3ML NEB HHN SCH ×4 (08:01→20:16)
[2017-12-22] MEDS: ENOXAPARIN 40MG/0.4ML SYR SUBCUT SCH (08:34)
[2017-12-22] MEDS: LEVETIRACETAM 500MG/5ML CUP GT SCH ×2 (08:34→20:23)
[2017-12-22] MEDS: PANTOPRAZOLE SODIUM 40 MG/VIAL IV SCH (08:35)
[2017-12-22] MEDS: MIDODRINE HCL 5MG TABLET NG SCH ×3 (08:35→17:38)
[2017-12-22] MEDS: RISPERIDONE 1MG TABLET NG SCH ×2 (08:35→20:23)
[2017-12-22] MEDS: ASPIRIN 81MG TABLET NG SCH (08:36)
[2017-12-22] MEDS: THIAMINE HCL 100MG TABLET PO SCH (08:36)
[2017-12-22] MEDS: MULTIVITAMINS,THER W-MINERALS TABLET PO SCH (08:36)
[2017-12-22] MEDS: FOLIC ACID 1MG TABLET PO SCH (08:37)
[2017-12-22] MEDS ORDERED: POTASSIUM CHLORIDE 20MEQ TABLET SR PO NR ×2 (10:11→12:45)
[2017-12-22 12:28] LABS: PLATELET ESTIMATE NORMAL
[2017-12-22] MEDS: HALOPERIDOL LACTATE 5MG/ML VIAL IM PRN (14:47)
[2017-12-23] VITALS (12 sets, daily range): BP systolic 84–132; BP diastolic 54–96
[2017-12-23] MEDS: IPRATROPIUM/ALBUTEROL 0.5-3(2.5)MG/3ML NEB HHN SCH ×6 (00:16→21:01)
[2017-12-23] MEDS: DIPHENHYDRAMINE 50MG/ML VIAL IV SCH ×4 (01:30→20:20)
[2017-12-23] MEDS: BLOOD SUGAR DIAGNOSTIC STRIP TEST SCH ×4 (06:00→17:01)
[2017-12-23] MEDS: INSULIN LISPRO 100 UNITS/ML SUBCUT SCH ×4 (06:00→17:02)
[2017-12-23] MEDS: PANTOPRAZOLE SODIUM 40 MG/VIAL IV SCH (08:28)
[2017-12-23] MEDS: ENOXAPARIN 40MG/0.4ML SYR SUBCUT SCH (08:28)
[2017-12-23] MEDS: MIDODRINE HCL 5MG TABLET NG SCH ×3 (08:29→17:00)
[2017-12-23] MEDS: THIAMINE HCL 100MG TABLET PO SCH (08:29)
[2017-12-23] MEDS: LEVETIRACETAM 500MG/5ML CUP GT SCH ×2 (08:29→20:20)
[2017-12-23] MEDS: MULTIVITAMINS,THER W-MINERALS TABLET PO SCH (08:29)
[2017-12-23] MEDS: RISPERIDONE 1MG TABLET NG SCH ×2 (08:29→20:20)
[2017-12-23] MEDS: ASPIRIN 81MG TABLET NG SCH (08:30)
[2017-12-23] MEDS: FOLIC ACID 1MG TABLET PO SCH (08:30)
[2017-12-23 09:37] LABS: HEMATOCRIT. 32.9 % (42.0-52.0); MEAN CORPUSCULAR HEMOGLOBIN 27.5 pg (28.0-32.0); MEAN CORPUSCULAR VOLUME 81.8 fL (80.0-94.0); MEAN PLATELET VOLUME 7.1 fl (7.4-10.4); PLATELET 411 x1000/uL (130-400); RED BLOOD CELL COUNT 4.02 mill/uL (4.7-6.1); RED CELL DISTRIBUTION WIDTH 14.3 % (11.6-14.6)
[2017-12-23 09:48] LABS: BG BASE EXCESS 1.4 mmol/L (-2.0-2.0); BG CARBOXYHEMOGLOBIN 0.3 % (0.5-1.5); BG DEOXYHEMOGLOBIN 2.6 % (0.0-5.0); BG FRACTION INSPIRED OXYGEN 35; BG HCO3 ACT 25.2 mmol/L (22.0-26.0); BG METHEMOGLOBIN 0.2 % (0.0-1.5); BG OXYGEN SATURATION 97.4 % (92.0-98.5); BG OXYHEMOGLOBIN 96.9 % (94.0-97.0); BG PCO2 36.7 mmHg (35.0-45.0); BG PH 7.454 (7.350-7.450); BG PO2 105.2 mmHg (75.0-100.0); BG PRESSURE SUPPORT 10; BG SAMPLE SITE RIGHT BRACHIAL; BG TOTAL HEMOGLOBIN 11.8 g/dL (12.0-18.0); BG VENT MODE VENT - CPAP
[2017-12-23 10:10] LABS: CHLORIDE 106 mEq/L (98-107)
[2017-12-23 16:17] LABS: PLATELET ESTIMATE SLIGHTLY INCREASED
[2017-12-24] VITALS (12 sets, daily range): BP systolic 94–146; BP diastolic 53–84
[2017-12-24] MEDS: IPRATROPIUM/ALBUTEROL 0.5-3(2.5)MG/3ML NEB HHN SCH ×6 (00:28→21:09)
[2017-12-24] MEDS: DIPHENHYDRAMINE 50MG/ML VIAL IV SCH ×4 (00:34→19:29)
[2017-12-24] MEDS: ONDANSETRON HCL 4MG/2ML VIAL IV PRN (00:34)
[2017-12-24] MEDS: BLOOD SUGAR DIAGNOSTIC STRIP TEST SCH ×4 (05:52→18:13)
[2017-12-24] MEDS: INSULIN LISPRO 100 UNITS/ML SUBCUT SCH ×4 (05:53→18:00)
[2017-12-24 07:42] LABS: HEMATOCRIT. 33.9 % (42.0-52.0); HEMOGLOBIN. 11.4 g/dL (14.0-18.0); MEAN CORPUSCULAR HEMOGLOBIN 27.4 pg (28.0-32.0); MEAN CORPUSCULAR VOLUME 81.7 fL (80.0-94.0); MEAN PLATELET VOLUME 7.2 fl (7.4-10.4); PLATELET 446 x1000/uL (130-400); RED BLOOD CELL COUNT 4.15 mill/uL (4.7-6.1)
[2017-12-24 07:50] LABS: CHLORIDE 104 mEq/L (98-107)
[2017-12-24] MEDS: MIDODRINE HCL 5MG TABLET NG SCH ×3 (09:00→17:00)
[2017-12-24] MEDS: RISPERIDONE 1MG TABLET NG SCH ×2 (09:07→21:00)
[2017-12-24] MEDS: PANTOPRAZOLE SODIUM 40 MG/VIAL IV SCH (09:07)
[2017-12-24] MEDS: ASPIRIN 81MG TABLET NG SCH (09:07)
[2017-12-24] MEDS: LEVETIRACETAM 500MG/5ML CUP GT SCH ×2 (09:07→21:00)
[2017-12-24] MEDS: THIAMINE HCL 100MG TABLET PO SCH (09:08)
[2017-12-24] MEDS: MULTIVITAMINS,THER W-MINERALS TABLET PO SCH (09:08)
[2017-12-24] MEDS: ENOXAPARIN 40MG/0.4ML SYR SUBCUT SCH (09:08)
[2017-12-24] MEDS: FOLIC ACID 1MG TABLET PO SCH (09:08)
[2017-12-24] MEDS ORDERED: GUAIFENESIN 200MG/10ML SUGAR FREE UDC PO PRN (12:15)
[2017-12-24] MEDS: DOCUSATE SODIUM 250MG CAPSULE PO SCH (12:15)
[2017-12-24 12:45] LABS: PLATELET ESTIMATE INCREASED
[2017-12-24 14:40] LABS: BG BASE EXCESS 1.2 mmol/L (-2.0-2.0); BG CARBOXYHEMOGLOBIN 0.2 % (0.5-1.5); BG DEOXYHEMOGLOBIN 1.3 % (0.0-5.0); BG FRACTION INSPIRED OXYGEN 35; BG HCO3 ACT 25.5 mmol/L (22.0-26.0); BG METHEMOGLOBIN 0.3 % (0.0-1.5); BG OXYGEN SATURATION 98.7 % (92.0-98.5); BG OXYHEMOGLOBIN 98.2 % (94.0-97.0); BG PCO2 39.4 mmHg (35.0-45.0); BG PH 7.429 (7.350-7.450); BG PO2 152.5 mmHg (75.0-100.0); BG SAMPLE SITE LEFT BRACHIAL; BG TOTAL HEMOGLOBIN 12.3 g/dL (12.0-18.0); BG VENT MODE MASK - TRACH
[2017-12-25] VITALS (10 sets, daily range): BP systolic 94–124; BP diastolic 45–74
[2017-12-25] MEDS: DIPHENHYDRAMINE 50MG/ML VIAL IV SCH ×3 (00:54→13:28)
[2017-12-25] MEDS: IPRATROPIUM/ALBUTEROL 0.5-3(2.5)MG/3ML NEB HHN SCH ×5 (01:06→15:25)
[2017-12-25] MEDS: BLOOD SUGAR DIAGNOSTIC STRIP TEST SCH ×4 (06:00→17:52)
[2017-12-25] MEDS: INSULIN LISPRO 100 UNITS/ML SUBCUT SCH ×4 (06:00→17:52)
[2017-12-25] MEDS: PANTOPRAZOLE SODIUM 40 MG/VIAL IV SCH (09:00)
[2017-12-25] MEDS: ENOXAPARIN 40MG/0.4ML SYR SUBCUT SCH (09:01)
[2017-12-25] MEDS: LEVETIRACETAM 500MG/5ML CUP GT SCH (09:01)
[2017-12-25] MEDS: FOLIC ACID 1MG TABLET PO SCH (09:02)
[2017-12-25] MEDS: MULTIVITAMINS,THER W-MINERALS TABLET PO SCH (09:02)
[2017-12-25] MEDS: THIAMINE HCL 100MG TABLET PO SCH (09:02)
[2017-12-25] MEDS: MIDODRINE HCL 5MG TABLET NG SCH ×3 (09:02→17:57)
[2017-12-25] MEDS: DOCUSATE SODIUM 250MG CAPSULE PO SCH (09:02)
[2017-12-25] MEDS: ASPIRIN 81MG TABLET NG SCH (09:02)
[2017-12-25] MEDS: RISPERIDONE 1MG TABLET NG SCH (09:54)
[2017-12-25] MEDS: ACETAMINOPHEN 325MG TABLET PO PRN (15:42)
== END 2017-12-25 19:38 | DRG 4 ==
LOC: ER 21:00 → 5EST 22:55 → EDBEDREQ 22:58 → EDBEDREQTM 22:58 → ENRESERV 23:44 → 5EST 12-01 03:57 → CVICU 12-01 04:15 → 5EST 12-19 15:45
PROVIDERS: ADMIT Internal Medicine; ATTEND Internal Medicine
PROC: 5A09357 Assistance with Respiratory Ventilation, Less than 24 Consecutive Hours, Continuous Positive Airway Pressure (ICD-10-PCS; principal; 2017-11-30)
PROC: 5A1955Z Respiratory Ventilation, Greater than 96 Consecutive Hours (ICD-10-PCS; 2017-12-01)
PROC: 0BH17EZ Insertion of Endotracheal Airway into Trachea, Via Natural or Artificial Opening (ICD-10-PCS; 2017-12-01)
PROC: 02HV33Z Insertion of Infusion Device into Superior Vena Cava, Percutaneous Approach (ICD-10-PCS; 2017-12-01)
PROC: B548ZZA Ultrasonography of Superior Vena Cava, Guidance (ICD-10-PCS; 2017-12-01)
PROC: 0DH68UZ Insertion of Feeding Device into Stomach, Via Natural or Artificial Opening Endoscopic (ICD-10-PCS; 2017-12-13)
PROC: 0B113F4 Bypass Trachea to Cutaneous with Tracheostomy Device, Percutaneous Approach (ICD-10-PCS; 2017-12-14)
DX: A41.9 Sepsis, unspecified organism (principal); I21.4 Non-ST elevation (NSTEMI) myocardial infarction; R65.21 Severe sepsis with septic shock; E87.4 Mixed disorder of acid-base balance; E46 Unspecified protein-calorie malnutrition; F10.231 Alcohol dependence with withdrawal delirium; G93.41 Metabolic encephalopathy; J18.9 Pneumonia, unspecified organism; J96.02 Acute respiratory failure with hypercapnia; J44.0 Chronic obstructive pulmonary disease with (acute) lower respiratory infection; J44.1 Chronic obstructive pulmonary disease with (acute) exacerbation; N39.0 Urinary tract infection, site not specified; Z68.1 Body mass index [BMI] 19.9 or less, adult; Z99.11 Dependence on respirator [ventilator] status; F17.210 Nicotine dependence, cigarettes, uncomplicated; E78.5 Hyperlipidemia, unspecified; E87.6 Hypokalemia; I10 Essential (primary) hypertension; I27.20 Pulmonary hypertension, unspecified; K80.20 Calculus of gallbladder without cholecystitis without obstruction; L50.9 Urticaria, unspecified; R13.10 Dysphagia, unspecified; R56.9 Unspecified convulsions; Z82.3 Family history of stroke; I25.2 Old myocardial infarction; Z82.49 Family history of ischemic heart disease and other diseases of the circulatory system; Z83.3 Family history of diabetes mellitus; Z93.1 Gastrostomy status; Z79.899 Other long term (current) drug therapy; Z79.51 Long term (current) use of inhaled steroids
CPT/HCPCS: 31500; 36415; 36569; 36600; 71045; 74018; 76700; 76937; 80048; 80053; 80061; 80202; 80305; 81003; 82088; 82375; 82533; 82805; 82962; 83605; 83690; 83735; 83880; 83935; 84100; 84132; 84153; 84443; 84478; 84484; 85025; 85027; 85610; 85730; 87040; 87070; 93005; 93306; 94003; 94640; 94644; 94660; 96365; 96375; 99291; A6261; C1725; C9113; J0330; J0456; J0690; J1200; J1630; J1650; J1815; J1940; J1953; J1956; J2060; J2185; J2250; J2270; J2405; J2704; J2765; J2920; J2930; J3010; J3370; J3475; J3480; J3490; J7030; J7040; J7050; J7060; J7120; J7611; J7620; J7626; P9041; P9047; A4315

== ENCOUNTER 2018-04-02 18:19 | Emergency (ER) | payer MEDICARE, OTHER ==
[~2018-04-02] VITALS: Ht 177.8 cm; Wt 75.0 kg
[2018-04-02 22:00] VITALS: BP 125/77
== END 2018-04-02 22:00 | disposition home or self-care (01) ==
LOC: ER 18:19
DX: T85.898A Other specified complication of other internal prosthetic devices, implants and grafts, initial encounter (principal); I10 Essential (primary) hypertension; J44.9 Chronic obstructive pulmonary disease, unspecified; Z93.1 Gastrostomy status; Z88.1 Allergy status to other antibiotic agents
CPT/HCPCS: 99283

== ENCOUNTER 2018-04-30 15:58 | Emergency (ER) | payer OTHER ==
[~2018-04-30] VITALS: Ht 175.3 cm; Wt 80.0 kg
[2018-04-30 18:18] VITALS: BP 151/80
== END 2018-04-30 18:29 | disposition home or self-care (01) ==
LOC: ER 15:58
DX: I10 Essential (primary) hypertension (principal); J44.9 Chronic obstructive pulmonary disease, unspecified; Z88.1 Allergy status to other antibiotic agents; Z79.899 Other long term (current) drug therapy; Z93.1 Gastrostomy status; Z87.01 Personal history of pneumonia (recurrent)
CPT/HCPCS: 93005; 99283

== ENCOUNTER 2018-12-23 19:22 | Inpatient (IN) | payer MEDICARE, OTHER ==
[~2018-12-23] VITALS: Ht 182.9 cm; Wt 70.8 kg
[2018-12-23] MEDS ORDERED: SODIUM CHLORIDE 0.9% 1,000 ML IV ONE (19:25)
[2018-12-23] MEDS ORDERED: ALBUTEROL (0.083%) 2.5MG/3ML NEB HHN ONE ×2 (19:30→22:15)
[2018-12-23] MEDS ORDERED: METHYLPREDNISOLONE SOD SUCC 125 MG/2 ML VIAL IV ONE (19:30)
[2018-12-23 19:49] LABS: BASOPHILS % 0.7 % (0.0-2.0); EOSINOPHILS % 2.4 % (0.0-5.0); HEMATOCRIT. 48.2 % (42.0-52.0); HEMOGLOBIN. 15.6 g/dL (14.0-18.0); LYMPHOCYTES % 26.7 % (20.0-50.0); MEAN CORPUSCULAR HEMOGLOBIN 27.7 pg (28.0-32.0); MEAN CORPUSCULAR VOLUME 85.3 fL (80.0-94.0); MEAN PLATELET VOLUME 7.4 fl (7.4-10.4); MONOCYTES % 5.8 % (2.0-8.0); NEUTROPHILS % 64.4 % (40.0-76.0); PLATELET 273 x1000/uL (130-400); RED BLOOD CELL COUNT 5.65 mill/uL (4.7-6.1); RED CELL DISTRIBUTION WIDTH 14.9 % (11.6-14.6)
[2018-12-23 19:53] LABS: CHLORIDE 107 mEq/L (98-107)
[2018-12-23 19:54] LABS: INR 1.1; PROTHROMBIN TIME 11.4 sec (9.1-11.1)
[2018-12-23 20:08] LABS: BG BILEVEL POS AIRWAY PRESSURE 15/5; BG CARBOXYHEMOGLOBIN 1.6 % (0.5-1.5); BG DEOXYHEMOGLOBIN 0.3 % (0.0-5.0); BG FRACTION INSPIRED OXYGEN 50; BG HCO3 ACT 23.6 mmol/L (22.0-26.0); BG METHEMOGLOBIN 0.3 % (0.0-1.5); BG OXYGEN SATURATION 99.7 % (92.0-98.5); BG OXYHEMOGLOBIN 97.8 % (94.0-97.0); BG PCO2 47.8 mmHg (35.0-45.0); BG PH 7.312 (7.350-7.450); BG PO2 338.2 mmHg (75.0-100.0); BG SAMPLE SITE RIGHT RADIAL; BG TOTAL HEMOGLOBIN 15.7 g/dL (12.0-18.0); BG VENT MODE MASK - BIPAP; BG VENT RATE 16 set
[2018-12-23] MEDS ORDERED: ASPIRIN 81MG TABLET PO ONE (21:00)
[2018-12-23] MEDS ORDERED: CLONIDINE 0.1MG TABLET PO PRN (21:15)
[2018-12-23] MEDS ORDERED: NA PHOS,M-B/NA PHOS,DI-BA ENEMA 118ML PR PRN (21:15)
[2018-12-23] MEDS ORDERED: ONDANSETRON HCL 4MG/2ML INJ IV PRN (21:15)
[2018-12-23] MEDS ORDERED: HYDROCODONE/ACETAMINOPHEN 10/325MG TABLET PO PRN (21:15)
[2018-12-23] MEDS ORDERED: HYDROMORPHONE HCL/PF 2MG/ML CPJ IV PRN (21:15)
[2018-12-23] MEDS ORDERED: MAGNESIUM/ALUMINUM HYDROXIDE/SIMETHICONE 30ML UDC PO PRN (21:15)
[2018-12-23] MEDS ORDERED: DOCUSATE SODIUM 100MG CAPSULE PO PRN (21:15)
[2018-12-23] MEDS ORDERED: HYDRALAZINE 20MG/ML VIAL IV PRN (21:15)
[2018-12-23] MEDS ORDERED: DIPHENHYDRAMINE 50MG/ML VIAL IV PRN (21:15)
[2018-12-23] MEDS ORDERED: LEVOFLOXACIN 500MG PREMIX 100 ML IV NR (21:32)
[2018-12-23] MEDS ORDERED: MAGNESIUM 2 G PREMIX 50 ML IV ONE (22:15)
[2018-12-23 23:53] LABS: CREATINE KINASE MB FRACTION 8.9 ng/mL (0.5-3.6)
[2018-12-24] VITALS (7 sets, daily range): BP systolic 108–141; BP diastolic 62–80
[2018-12-24] MEDS: METHYLPREDNISOLONE SOD SUCC 125 MG/2 ML VIAL IV SCH ×5 (01:39→23:47)
[2018-12-24 05:45] LABS: HEMATOCRIT. 44.8 % (42.0-52.0); HEMOGLOBIN. 14.4 g/dL (14.0-18.0); MEAN CORPUSCULAR HEMOGLOBIN 27.4 pg (28.0-32.0); MEAN PLATELET VOLUME 7.6 fl (7.4-10.4); PLATELET 220 x1000/uL (130-400); RED BLOOD CELL COUNT 5.28 mill/uL (4.7-6.1); RED CELL DISTRIBUTION WIDTH 14.8 % (11.6-14.6)
[2018-12-24 05:49] LABS: CHLORIDE 108 mEq/L (98-107)
[2018-12-24 06:00] LABS: CREATINE KINASE 248 IU/L (39-308)
[2018-12-24 06:02] LABS: CREATINE KINASE MB FRACTION 10.1 ng/mL (0.5-3.6)
[2018-12-24 06:36] LABS: PLATELET ESTIMATE NORMAL
[2018-12-24] MEDS: LORAZEPAM 2MG/ML CPJ IV PRN ×2 (07:28→17:56)
[2018-12-24] MEDS: IPRATROPIUM/ALBUTEROL 0.5-3(2.5)MG/3ML NEB INH PRN (07:41)
[2018-12-24] MEDS: AMLODIPINE 5MG TABLET PO SCH (12:00)
[2018-12-24] MEDS: ASPIRIN 81MG EC TABLET PO SCH (12:32)
[2018-12-24] MEDS: SODIUM CHLORIDE 0.9% INJ 3ML FLUSH IVF SCH ×2 (12:32→21:55)
[2018-12-24] MEDS: ENOXAPARIN 40MG/0.4ML SYR SUBCUT SCH (12:34)
[2018-12-24] MEDS: NICOTINE 14MG PATCH TD SCH (17:55)
[2018-12-24 19:12] LABS: CLARITY URINE CLEAR (CLEAR); COLOR URINE YELLOW (YELLOW); KETONES URINE 2+ (NEGATIVE); LEUKOCYTE ESTERASE URINE NEGATIVE (NEGATIVE); NITRITE URINE NEGATIVE (NEGATIVE); OCCULT BLOOD URINE NEGATIVE (NEGATIVE); PROTEIN URINE TRACE (NEGATIVE); SPECIFIC GRAVITY URINE 1.023 (1.005-1.030); UROBILINOGEN URINE 0.2 E.U./dL (0.2-1.0)
[2018-12-24 19:21] LABS: *AMPHETAMINES SCREEN URINE NEGATIVE (NEGATIVE); *BARBITURATES SCREEN URINE NEGATIVE (NEGATIVE); *BENZODIAZEPINES SCREEN URINE NEGATIVE (NEGATIVE); *COCAINE SCREEN URINE NEGATIVE (NEGATIVE); METHADONE URINE SCREEN NEGATIVE (NEGATIVE)
[2018-12-24 19:22] LABS: CANNABINOID URINE SCREEN NEGATIVE (NEGATIVE); OPIATES URINE SCREEN NEGATIVE (NEGATIVE); PHENCYCLIDINE URINE SCREEN NEGATIVE (NEGATIVE)
[2018-12-24 20:34] LABS: BG BASE EXCESS 0.1 mmol/L (-2.0-2.0); BG BILEVEL POS AIRWAY PRESSURE 15/5; BG CARBOXYHEMOGLOBIN 0.4 % (0.5-1.5); BG DEOXYHEMOGLOBIN 3.2 % (0.0-5.0); BG FRACTION INSPIRED OXYGEN 30; BG HCO3 ACT 24.2 mmol/L (22.0-26.0); BG METHEMOGLOBIN 0.2 % (0.0-1.5); BG OXYGEN SATURATION 96.8 % (92.0-98.5); BG OXYHEMOGLOBIN 96.2 % (94.0-97.0); BG PCO2 37.6 mmHg (35.0-45.0); BG PH 7.426 (7.350-7.450); BG PO2 88.1 mmHg (75.0-100.0); BG PRESSURE SUPPORT 10; BG SAMPLE SITE RIGHT RADIAL; BG TOTAL HEMOGLOBIN 14.5 g/dL (12.0-18.0); BG VENT MODE MASK - BIPAP
[2018-12-24] MEDS: LEVOFLOXACIN 500MG PREMIX 100 ML IV SCH (21:45)
[2018-12-24] MEDS: IPRATROPIUM BROMIDE (0.02%) 0.5MG/2.5ML NEB HHN SCH (21:52)
[2018-12-25] VITALS (16 sets, daily range): BP systolic 92–136; BP diastolic 45–102
[2018-12-25] MEDS: IPRATROPIUM BROMIDE (0.02%) 0.5MG/2.5ML NEB HHN SCH ×5 (00:44→21:14)
[2018-12-25] MEDS: METHYLPREDNISOLONE SOD SUCC 125 MG/2 ML VIAL IV SCH ×4 (05:28→23:56)
[2018-12-25] MEDS: SODIUM CHLORIDE 0.9% INJ 3ML FLUSH IVF SCH ×3 (06:35→21:36)
[2018-12-25 07:19] LABS: CHLORIDE 109 mEq/L (98-107)
[2018-12-25 07:20] LABS: HEMOGLOBIN. 12.9 g/dL (14.0-18.0); MEAN CORPUSCULAR HEMOGLOBIN 27.4 pg (28.0-32.0); MEAN CORPUSCULAR VOLUME 84.9 fL (80.0-94.0); PLATELET 197 x1000/uL (130-400); RED BLOOD CELL COUNT 4.71 mill/uL (4.7-6.1)
[2018-12-25] MEDS: AMLODIPINE 5MG TABLET PO SCH (10:09)
[2018-12-25] MEDS: ASPIRIN 81MG EC TABLET PO SCH (10:09)
[2018-12-25] MEDS: NICOTINE 14MG PATCH TD SCH (10:09)
[2018-12-25] MEDS: LORAZEPAM 2MG/ML CPJ IV PRN ×2 (10:10→18:54)
[2018-12-25] MEDS: IPRATROPIUM/ALBUTEROL 0.5-3(2.5)MG/3ML NEB INH PRN ×3 (11:12→18:13)
[2018-12-25] MEDS: ENOXAPARIN 40MG/0.4ML SYR SUBCUT SCH (12:09)
[2018-12-25 13:16] LABS: PLATELET ESTIMATE NORMAL
[2018-12-25] MEDS: THEOPHYLLINE ANHYDROUS 80 MG/15 ML 120ML PO SCH ×2 (17:24→21:36)
[2018-12-25] MEDS: GUAIFENESIN 200MG/10ML SUGAR FREE UDC PO PRN (20:15)
[2018-12-25] MEDS: LEVOFLOXACIN 500MG PREMIX 100 ML IV SCH (22:24)
[2018-12-26] VITALS (13 sets, daily range): BP systolic 111–132; BP diastolic 46–73
[2018-12-26] MEDS: IPRATROPIUM BROMIDE (0.02%) 0.5MG/2.5ML NEB HHN SCH ×6 (00:42→20:33)
[2018-12-26] MEDS: GUAIFENESIN 200MG/10ML SUGAR FREE UDC PO PRN ×4 (03:28→21:11)
[2018-12-26] MEDS: THEOPHYLLINE ANHYDROUS 80 MG/15 ML 120ML PO SCH ×3 (06:05→21:10)
[2018-12-26] MEDS: METHYLPREDNISOLONE SOD SUCC 125 MG/2 ML VIAL IV SCH ×2 (06:05→11:21)
[2018-12-26] MEDS: SODIUM CHLORIDE 0.9% INJ 3ML FLUSH IVF SCH ×3 (06:06→21:11)
[2018-12-26 07:06] LABS: HEMATOCRIT. 39.5 % (42.0-52.0); HEMOGLOBIN. 12.7 g/dL (14.0-18.0); MEAN CORPUSCULAR HEMOGLOBIN 27.2 pg (28.0-32.0); MEAN CORPUSCULAR VOLUME 84.5 fL (80.0-94.0); MEAN PLATELET VOLUME 7.7 fl (7.4-10.4); PLATELET 192 x1000/uL (130-400); RED BLOOD CELL COUNT 4.67 mill/uL (4.7-6.1); RED CELL DISTRIBUTION WIDTH 14.7 % (11.6-14.6)
[2018-12-26] MEDS: NICOTINE 14MG PATCH TD SCH (08:03)
[2018-12-26] MEDS: AMLODIPINE 5MG TABLET PO SCH (08:03)
[2018-12-26] MEDS: ASPIRIN 81MG EC TABLET PO SCH (08:03)
[2018-12-26 08:12] LABS: CHLORIDE 106 mEq/L (98-107)
[2018-12-26 09:49] LABS: PLATELET ESTIMATE NORMAL
[2018-12-26] MEDS: ENOXAPARIN 40MG/0.4ML SYR SUBCUT SCH (11:21)
[2018-12-26] MEDS: LORAZEPAM 2MG/ML CPJ IV PRN (11:21)
[2018-12-26] MEDS: METHYLPREDNISOLONE SOD SUCC 40 MG/ML VIAL IV SCH (17:12)
[2018-12-26] MEDS: ACETAMINOPHEN 325MG TABLET PO PRN (21:10)
[2018-12-26] MEDS: LEVOFLOXACIN 500MG PREMIX 100 ML IV SCH (23:09)
[2018-12-27] VITALS (35 sets, daily range): BP systolic 107–144; BP diastolic 54–87
[2018-12-27] MEDS: IPRATROPIUM BROMIDE (0.02%) 0.5MG/2.5ML NEB HHN SCH ×7 (00:22→20:26)
[2018-12-27] MEDS: LORAZEPAM 2MG/ML CPJ IV PRN ×2 (00:45→08:12)
[2018-12-27] MEDS: METHYLPREDNISOLONE SOD SUCC 40 MG/ML VIAL IV SCH (05:14)
[2018-12-27] MEDS: SODIUM CHLORIDE 0.9% INJ 3ML FLUSH IVF SCH ×3 (05:15→21:22)
[2018-12-27] MEDS: THEOPHYLLINE ANHYDROUS 80 MG/15 ML 120ML PO SCH ×3 (05:16→21:25)
[2018-12-27] MEDS: GUAIFENESIN 200MG/10ML SUGAR FREE UDC PO PRN (06:14)
[2018-12-27 06:41] LABS: HEMOGLOBIN. 13.3 g/dL (14.0-18.0); MEAN CORPUSCULAR HEMOGLOBIN 27.9 pg (28.0-32.0); MEAN CORPUSCULAR VOLUME 83.8 fL (80.0-94.0); MEAN PLATELET VOLUME 7.6 fl (7.4-10.4); PLATELET 205 x1000/uL (130-400); RED BLOOD CELL COUNT 4.77 mill/uL (4.7-6.1); RED CELL DISTRIBUTION WIDTH 14.7 % (11.6-14.6)
[2018-12-27 07:17] LABS: CHLORIDE 105 mEq/L (98-107)
[2018-12-27] MEDS: NICOTINE 14MG PATCH TD SCH (08:12)
[2018-12-27] MEDS: AMLODIPINE 5MG TABLET PO SCH (08:13)
[2018-12-27] MEDS: ASPIRIN 81MG EC TABLET PO SCH (08:13)
[2018-12-27] MEDS ORDERED: METHYLPREDNISOLONE SOD SUCC 40 MG/ML VIAL IV ONE (09:00)
[2018-12-27] MEDS ORDERED: RACEPINEPHRINE 2.25% 0.5ML NEB VIAL HHN NR (09:00)
[2018-12-27 09:47] LABS: BG BASE EXCESS 4.4 mmol/L (-2.0-2.0); BG BILEVEL POS AIRWAY PRESSURE 15/5; BG CARBOXYHEMOGLOBIN 0.1 % (0.5-1.5); BG DEOXYHEMOGLOBIN 4.6 % (0.0-5.0); BG FRACTION INSPIRED OXYGEN 30; BG HCO3 ACT 28.7 mmol/L (22.0-26.0); BG METHEMOGLOBIN 0.6 % (0.0-1.5); BG OXYGEN SATURATION 95.4 % (92.0-98.5); BG OXYHEMOGLOBIN 94.7 % (94.0-97.0); BG PCO2 41.4 mmHg (35.0-45.0); BG PH 7.458 (7.350-7.450); BG PO2 77.4 mmHg (75.0-100.0); BG SAMPLE SITE RIGHT RADIAL; BG TOTAL HEMOGLOBIN 14.4 g/dL (12.0-18.0); BG VENT MODE MASK - BIPAP
[2018-12-27] MEDS ORDERED: TERBUTALINE SULFATE 1MG/ML VIAL SUBCUT NR (10:11)
[2018-12-27 10:53] LABS: PLATELET ESTIMATE NORMAL
[2018-12-27] MEDS: METHYLPREDNISOLONE SOD SUCC 125 MG/2 ML VIAL IV SCH ×2 (11:28→17:00)
[2018-12-27] MEDS: ENOXAPARIN 40MG/0.4ML SYR SUBCUT SCH (11:28)
[2018-12-27] MEDS: RACEPINEPHRINE 2.25% 0.5ML NEB VIAL HHN PRN ×2 (12:40→17:15)
[2018-12-27] MEDS ORDERED: THEOPHYLLINE ANHYDROUS 80 MG/15 ML 120ML PO SCH (14:00)
[2018-12-27] MEDS: PANTOPRAZOLE SODIUM 40 MG/VIAL IV SCH (14:40)
[2018-12-28] VITALS (25 sets, daily range): BP systolic 78–140; BP diastolic 19–74
[2018-12-28] MEDS: IPRATROPIUM BROMIDE (0.02%) 0.5MG/2.5ML NEB HHN SCH ×6 (00:09→21:05)
[2018-12-28] MEDS: METHYLPREDNISOLONE SOD SUCC 125 MG/2 ML VIAL IV SCH ×5 (00:14→23:29)
[2018-12-28] MEDS: LEVOFLOXACIN 500MG PREMIX 100 ML IV SCH ×2 (00:15→23:29)
[2018-12-28] MEDS: GUAIFENESIN 200MG/10ML SUGAR FREE UDC PO PRN ×3 (00:40→17:11)
[2018-12-28] MEDS: LORAZEPAM 2MG/ML CPJ IV PRN (04:21)
[2018-12-28] MEDS: THEOPHYLLINE ANHYDROUS 80 MG/15 ML 120ML PO SCH ×3 (05:07→20:43)
[2018-12-28] MEDS: SODIUM CHLORIDE 0.9% INJ 3ML FLUSH IVF SCH ×2 (05:07→13:11)
[2018-12-28] MEDS: IPRATROPIUM/ALBUTEROL 0.5-3(2.5)MG/3ML NEB INH PRN (06:25)
[2018-12-28] MEDS: PANTOPRAZOLE SODIUM 40 MG/VIAL IV SCH (09:08)
[2018-12-28] MEDS: NICOTINE 14MG PATCH TD SCH (09:08)
[2018-12-28] MEDS: AMLODIPINE 5MG TABLET PO SCH (09:09)
[2018-12-28] MEDS: ASPIRIN 81MG EC TABLET PO SCH (09:09)
[2018-12-28 09:40] LABS: HEMOGLOBIN. 12.6 g/dL (14.0-18.0); MEAN CORPUSCULAR HEMOGLOBIN 27.9 pg (28.0-32.0); MEAN CORPUSCULAR VOLUME 84.1 fL (80.0-94.0); MEAN PLATELET VOLUME 7.4 fl (7.4-10.4); PLATELET 189 x1000/uL (130-400); RED BLOOD CELL COUNT 4.52 mill/uL (4.7-6.1); RED CELL DISTRIBUTION WIDTH 14.8 % (11.6-14.6)
[2018-12-28 09:48] LABS: CHLORIDE 104 mEq/L (98-107)
[2018-12-28 10:12] LABS: PLATELET ESTIMATE NORMAL
[2018-12-28] MEDS: RACEPINEPHRINE 2.25% 0.5ML NEB VIAL HHN PRN ×2 (11:41→15:59)
[2018-12-28] MEDS: ENOXAPARIN 40MG/0.4ML SYR SUBCUT SCH (12:44)
[2018-12-28 14:14] LABS: BG BASE EXCESS 3.8 mmol/L (-2.0-2.0); BG CARBOXYHEMOGLOBIN 0.3 % (0.5-1.5); BG DEOXYHEMOGLOBIN 6.6 % (0.0-5.0); BG FRACTION INSPIRED OXYGEN 36; BG HCO3 ACT 28.1 mmol/L (22.0-26.0); BG METHEMOGLOBIN 0.3 % (0.0-1.5); BG OXYGEN SATURATION 93.4 % (92.0-98.5); BG OXYHEMOGLOBIN 92.8 % (94.0-97.0); BG PCO2 41.6 mmHg (35.0-45.0); BG PH 7.448 (7.350-7.450); BG PO2 67.4 mmHg (75.0-100.0); BG SAMPLE SITE RIGHT BRACHIAL; BG TOTAL HEMOGLOBIN 12.6 g/dL (12.0-18.0); BG VENT MODE NASAL CANNULA
[2018-12-29] VITALS (24 sets, daily range): BP systolic 97–130; BP diastolic 52–116
[2018-12-29] MEDS: IPRATROPIUM BROMIDE (0.02%) 0.5MG/2.5ML NEB HHN SCH ×6 (00:37→20:12)
[2018-12-29] MEDS: METHYLPREDNISOLONE SOD SUCC 125 MG/2 ML VIAL IV SCH ×4 (05:19→23:18)
[2018-12-29] MEDS: THEOPHYLLINE ANHYDROUS 80 MG/15 ML 120ML PO SCH ×3 (05:19→21:11)
[2018-12-29 06:10] LABS: HEMATOCRIT. 38.2 % (42.0-52.0); HEMOGLOBIN. 12.5 g/dL (14.0-18.0); MEAN CORPUSCULAR HEMOGLOBIN 27.4 pg (28.0-32.0); MEAN CORPUSCULAR VOLUME 83.5 fL (80.0-94.0); MEAN PLATELET VOLUME 7.7 fl (7.4-10.4); PLATELET 188 x1000/uL (130-400); RED BLOOD CELL COUNT 4.57 mill/uL (4.7-6.1); RED CELL DISTRIBUTION WIDTH 14.6 % (11.6-14.6)
[2018-12-29] MEDS: ACETAMINOPHEN 325MG TABLET PO PRN (06:53)
[2018-12-29 07:15] LABS: CHLORIDE 101 mEq/L (98-107)
[2018-12-29] MEDS: NICOTINE 14MG PATCH TD SCH (08:31)
[2018-12-29] MEDS: PANTOPRAZOLE SODIUM 40 MG/VIAL IV SCH (08:32)
[2018-12-29] MEDS: ASPIRIN 81MG EC TABLET PO SCH (08:32)
[2018-12-29] MEDS: AMLODIPINE 5MG TABLET PO SCH (08:33)
[2018-12-29 11:05] LABS: NUCLEATED RED BLOOD CELLS 1 /100 WBC; PLATELET ESTIMATE NORMAL
[2018-12-29] MEDS: ENOXAPARIN 40MG/0.4ML SYR SUBCUT SCH (12:03)
[2018-12-29 13:54] LABS: BG BASE EXCESS 6.8 mmol/L (-2.0-2.0); BG BILEVEL POS AIRWAY PRESSURE ST=15/5; BG CARBOXYHEMOGLOBIN 0.3 % (0.5-1.5); BG DEOXYHEMOGLOBIN 10.2 % (0.0-5.0); BG FRACTION INSPIRED OXYGEN 30; BG HCO3 ACT 31.6 mmol/L (22.0-26.0); BG METHEMOGLOBIN 0.5 % (0.0-1.5); BG OXYGEN SATURATION 89.7 % (92.0-98.5); BG PCO2 45.6 mmHg (35.0-45.0); BG PH 7.459 (7.350-7.450); BG PO2 56.8 mmHg (75.0-100.0); BG PRESSURE SUPPORT 10; BG SAMPLE SITE RIGHT RADIAL; BG TOTAL HEMOGLOBIN 13.4 g/dL (12.0-18.0); BG VENT MODE MASK - BIPAP; BG VENT RATE 18 set
[2018-12-29] MEDS: RACEPINEPHRINE 2.25% 0.5ML NEB VIAL HHN PRN (20:13)
[2018-12-29] MEDS: LEVOFLOXACIN 500MG PREMIX 100 ML IV SCH (23:18)
[2018-12-30] VITALS (24 sets, daily range): BP systolic 95–128; BP diastolic 58–81
[2018-12-30] MEDS: RACEPINEPHRINE 2.25% 0.5ML NEB VIAL HHN PRN ×2 (00:44→04:47)
[2018-12-30] MEDS: IPRATROPIUM BROMIDE (0.02%) 0.5MG/2.5ML NEB HHN SCH ×6 (00:44→19:59)
[2018-12-30 05:24] LABS: HEMATOCRIT. 37.6 % (42.0-52.0); HEMOGLOBIN. 12.4 g/dL (14.0-18.0); MEAN CORPUSCULAR HEMOGLOBIN 27.6 pg (28.0-32.0); MEAN CORPUSCULAR VOLUME 83.5 fL (80.0-94.0); MEAN PLATELET VOLUME 7.7 fl (7.4-10.4); PLATELET 203 x1000/uL (130-400); RED CELL DISTRIBUTION WIDTH 14.2 % (11.6-14.6)
[2018-12-30] MEDS: METHYLPREDNISOLONE SOD SUCC 125 MG/2 ML VIAL IV SCH ×3 (05:27→18:15)
[2018-12-30] MEDS: THEOPHYLLINE ANHYDROUS 80 MG/15 ML 120ML PO SCH ×3 (05:27→21:17)
[2018-12-30 05:49] LABS: CHLORIDE 100 mEq/L (98-107)
[2018-12-30 07:57] LABS: PLATELET ESTIMATE NORMAL
[2018-12-30] MEDS: AMLODIPINE 5MG TABLET PO SCH ×2 (09:00→11:09)
[2018-12-30 09:13] LABS: BG BASE EXCESS 4.5 mmol/L (-2.0-2.0); BG BILEVEL POS AIRWAY PRESSURE 15/5; BG CARBOXYHEMOGLOBIN 0.4 % (0.5-1.5); BG DEOXYHEMOGLOBIN 2.2 % (0.0-5.0); BG FRACTION INSPIRED OXYGEN 40; BG HCO3 ACT 28.9 mmol/L (22.0-26.0); BG METHEMOGLOBIN 0.3 % (0.0-1.5); BG OXYGEN SATURATION 97.8 % (92.0-98.5); BG OXYHEMOGLOBIN 97.1 % (94.0-97.0); BG PCO2 42.5 mmHg (35.0-45.0); BG PH 7.451 (7.350-7.450); BG PO2 107.1 mmHg (75.0-100.0); BG SAMPLE SITE RIGHT BRACHIAL; BG TOTAL HEMOGLOBIN 12.9 g/dL (12.0-18.0); BG VENT MODE MASK - BIPAP; BG VENT RATE 18 set
[2018-12-30] MEDS: PANTOPRAZOLE SODIUM 40 MG/VIAL IV SCH (09:30)
[2018-12-30] MEDS: ASPIRIN 81MG EC TABLET PO SCH (09:30)
[2018-12-30] MEDS: NICOTINE 14MG PATCH TD SCH (09:30)
[2018-12-30] MEDS: GUAIFENESIN 200MG/10ML SUGAR FREE UDC PO PRN (09:33)
[2018-12-30] MEDS: ACETAMINOPHEN 325MG TABLET PO PRN (12:14)
[2018-12-30] MEDS: ENOXAPARIN 40MG/0.4ML SYR SUBCUT SCH (12:14)
[2018-12-30] MEDS ORDERED: ONDANSETRON HCL 4MG/2ML INJ IV PRN (14:30)
[2018-12-31] VITALS (10 sets, daily range): BP systolic 4–131; BP diastolic 58–128
[2018-12-31] MEDS: GUAIFENESIN 200MG/10ML SUGAR FREE UDC PO PRN ×2 (00:06→05:12)
[2018-12-31] MEDS: METHYLPREDNISOLONE SOD SUCC 125 MG/2 ML VIAL IV SCH ×2 (00:07→05:11)
[2018-12-31] MEDS: IPRATROPIUM BROMIDE (0.02%) 0.5MG/2.5ML NEB HHN SCH ×6 (00:25→21:10)
[2018-12-31] MEDS: LEVOFLOXACIN 500MG PREMIX 100 ML IV SCH (00:47)
[2018-12-31] MEDS: THEOPHYLLINE ANHYDROUS 80 MG/15 ML 120ML PO SCH ×3 (05:12→22:00)
[2018-12-31 07:05] LABS: HEMATOCRIT. 38.7 % (42.0-52.0); HEMOGLOBIN. 12.8 g/dL (14.0-18.0); MEAN CORPUSCULAR HEMOGLOBIN 27.7 pg (28.0-32.0); MEAN CORPUSCULAR VOLUME 83.8 fL (80.0-94.0); MEAN PLATELET VOLUME 7.7 fl (7.4-10.4); PLATELET 224 x1000/uL (130-400); RED BLOOD CELL COUNT 4.62 mill/uL (4.7-6.1); RED CELL DISTRIBUTION WIDTH 14.2 % (11.6-14.6)
[2018-12-31 07:43] LABS: CHLORIDE 101 mEq/L (98-107)
[2018-12-31] MEDS: ASPIRIN 81MG EC TABLET PO SCH (09:09)
[2018-12-31] MEDS: AMLODIPINE 5MG TABLET PO SCH (09:09)
[2018-12-31] MEDS: NICOTINE 14MG PATCH TD SCH (09:09)
[2018-12-31] MEDS: PANTOPRAZOLE SODIUM 40 MG/VIAL IV SCH (09:09)
[2018-12-31] MEDS: ENOXAPARIN 40MG/0.4ML SYR SUBCUT SCH (13:10)
[2018-12-31] MEDS: METHYLPREDNISOLONE SOD SUCC 40 MG/ML VIAL IV SCH ×2 (13:10→21:53)
[2018-12-31 15:32] LABS: PLATELET ESTIMATE NORMAL
[2019-01-01] VITALS (12 sets, daily range): BP systolic 106–147; BP diastolic 51–75
[2019-01-01] MEDS: IPRATROPIUM BROMIDE (0.02%) 0.5MG/2.5ML NEB HHN SCH ×5 (00:29→21:35)
[2019-01-01] MEDS: METHYLPREDNISOLONE SOD SUCC 40 MG/ML VIAL IV SCH ×3 (06:45→17:58)
[2019-01-01] MEDS: IPRATROPIUM/ALBUTEROL 0.5-3(2.5)MG/3ML NEB INH PRN (06:57)
[2019-01-01] MEDS: PANTOPRAZOLE SODIUM 40 MG/VIAL IV SCH (08:58)
[2019-01-01] MEDS: NICOTINE 14MG PATCH TD SCH (08:58)
[2019-01-01] MEDS: ASPIRIN 81MG EC TABLET PO SCH (08:58)
[2019-01-01] MEDS: AMLODIPINE 5MG TABLET PO SCH (09:00)
[2019-01-01] MEDS: ENOXAPARIN 40MG/0.4ML SYR SUBCUT SCH (11:50)
[2019-01-01] MEDS: THEOPHYLLINE ANHYDROUS 80 MG/15 ML 120ML PO SCH ×3 (17:57→22:07)
[2019-01-02] VITALS (9 sets, daily range): BP systolic 102–142; BP diastolic 55–80
[2019-01-02] MEDS: IPRATROPIUM BROMIDE (0.02%) 0.5MG/2.5ML NEB HHN SCH ×6 (00:29→22:07)
[2019-01-02] MEDS: GUAIFENESIN 200MG/10ML SUGAR FREE UDC PO PRN (03:14)
[2019-01-02] MEDS: THEOPHYLLINE ANHYDROUS 80 MG/15 ML 120ML PO SCH ×3 (05:47→20:55)
[2019-01-02 06:09] LABS: HEMATOCRIT. 39.5 % (42.0-52.0); HEMOGLOBIN. 12.9 g/dL (14.0-18.0); MEAN CORPUSCULAR HEMOGLOBIN 27.5 pg (28.0-32.0); MEAN CORPUSCULAR VOLUME 84.3 fL (80.0-94.0); MEAN PLATELET VOLUME 7.6 fl (7.4-10.4); PLATELET 244 x1000/uL (130-400); RED BLOOD CELL COUNT 4.69 mill/uL (4.7-6.1)
[2019-01-02 06:20] LABS: CHLORIDE 103 mEq/L (98-107)
[2019-01-02 08:44] LABS: PLATELET ESTIMATE NORMAL
[2019-01-02] MEDS: ASPIRIN 81MG EC TABLET PO SCH (08:53)
[2019-01-02] MEDS: PANTOPRAZOLE SODIUM 40 MG/VIAL IV SCH (08:53)
[2019-01-02] MEDS: AMLODIPINE 5MG TABLET PO SCH (08:55)
[2019-01-02] MEDS: NICOTINE 14MG PATCH TD SCH (08:55)
[2019-01-02] MEDS: METHYLPREDNISOLONE SOD SUCC 40 MG/ML VIAL IV SCH ×2 (09:38→17:31)
[2019-01-02] MEDS: ENOXAPARIN 40MG/0.4ML SYR SUBCUT SCH (11:54)
[2019-01-02] MEDS ORDERED: IOHEXOL-350 100 ML BOTTLE ONE (16:24)
[2019-01-03] VITALS (10 sets, daily range): BP systolic 118–160; BP diastolic 59–107
[2019-01-03] MEDS: GUAIFENESIN 200MG/10ML SUGAR FREE UDC PO PRN (00:23)
[2019-01-03] MEDS: IPRATROPIUM BROMIDE (0.02%) 0.5MG/2.5ML NEB HHN SCH ×5 (01:53→16:41)
[2019-01-03 06:14] LABS: HEMATOCRIT. 37.8 % (42.0-52.0); HEMOGLOBIN. 12.6 g/dL (14.0-18.0); MEAN CORPUSCULAR HEMOGLOBIN 27.9 pg (28.0-32.0); PLATELET 245 x1000/uL (130-400); RED CELL DISTRIBUTION WIDTH 14.9 % (11.6-14.6)
[2019-01-03 06:25] LABS: D-DIMER 0.34 mg/L FEU (<0.50); INR 1.1; PARTIAL THROMBOPLASTIN TIME 24.5 sec (23.4-31.0); PROTHROMBIN TIME 11.4 sec (9.6-11.0)
[2019-01-03] MEDS: THEOPHYLLINE ANHYDROUS 80 MG/15 ML 120ML PO SCH ×2 (06:30→14:28)
[2019-01-03 07:05] LABS: PLATELET ESTIMATE NORMAL
[2019-01-03 07:14] LABS: CHLORIDE 100 mEq/L (98-107)
[2019-01-03] MEDS: NICOTINE 14MG PATCH TD SCH (08:47)
[2019-01-03] MEDS: PANTOPRAZOLE SODIUM 40 MG/VIAL IV SCH (08:47)
[2019-01-03] MEDS: METHYLPREDNISOLONE SOD SUCC 40 MG/ML VIAL IV SCH (08:47)
[2019-01-03] MEDS: ASPIRIN 81MG EC TABLET PO SCH (08:48)
[2019-01-03] MEDS: AMLODIPINE 5MG TABLET PO SCH (08:48)
[2019-01-03] MEDS: ENOXAPARIN 40MG/0.4ML SYR SUBCUT SCH (11:08)
== END 2019-01-03 17:30 | disposition home or self-care (01) | DRG 189 ==
LOC: ER 19:22 → EDBEDREQ 21:01 → EDBEDREQTM 21:01 → EDBEDREQSVC 21:01 → 3WST 22:50 → EDBEDREQTM 22:55 → EDBEDREQSVC 22:55 → ENRESERV 12-24 10:39 → CVICU 12-27 09:26 → 5EST 12-30 22:15
PROVIDERS: ADMIT Internal Medicine; ATTEND Internal Medicine
PROC: 5A09457 Assistance with Respiratory Ventilation, 24-96 Consecutive Hours, Continuous Positive Airway Pressure (ICD-10-PCS; principal; 2018-12-23)
PROC: 5A09357 Assistance with Respiratory Ventilation, Less than 24 Consecutive Hours, Continuous Positive Airway Pressure (ICD-10-PCS; 2018-12-26)
PROC: 5A09457 Assistance with Respiratory Ventilation, 24-96 Consecutive Hours, Continuous Positive Airway Pressure (ICD-10-PCS; 2018-12-26)
PROC: 5A09457 Assistance with Respiratory Ventilation, 24-96 Consecutive Hours, Continuous Positive Airway Pressure (ICD-10-PCS; 2018-12-29)
DX: J96.20 Acute and chronic respiratory failure, unspecified whether with hypoxia or hypercapnia (principal); J44.1 Chronic obstructive pulmonary disease with (acute) exacerbation; G93.40 Encephalopathy, unspecified; E87.2 Acidosis; E46 Unspecified protein-calorie malnutrition; I27.20 Pulmonary hypertension, unspecified; F17.210 Nicotine dependence, cigarettes, uncomplicated; D72.829 Elevated white blood cell count, unspecified; D64.9 Anemia, unspecified; I11.9 Hypertensive heart disease without heart failure; E78.5 Hyperlipidemia, unspecified; F10.10 Alcohol abuse, uncomplicated; L89.899 Pressure ulcer of other site, unspecified stage; K21.9 Gastro-esophageal reflux disease without esophagitis; T38.0X5A Adverse effect of glucocorticoids and synthetic analogues, initial encounter; Z79.899 Other long term (current) drug therapy; Z82.49 Family history of ischemic heart disease and other diseases of the circulatory system; Z88.1 Allergy status to other antibiotic agents; Z88.8 Allergy status to other drugs, medicaments and biological substances; Z87.01 Personal history of pneumonia (recurrent); Z71.6 Tobacco abuse counseling; Z68.21 Body mass index [BMI] 21.0-21.9, adult
CPT/HCPCS: 36415; 36600; 71045; 71275; 80048; 80305; 82375; 82550; 82553; 82805; 83880; 84484; 85379; 92610; 93005; 93306; 94640; 94660; 96374; 97116; 97162; 97166; 97530; 97535; 99285; C9113; J1200; J1650; J1956; J2060; J2405; J2920; J2930; J3105; J3475; J7030; J7050; J7611; J7620; Q9967

== ENCOUNTER 2019-07-09 18:19 | Inpatient (IN) | payer MEDICARE, OTHER ==
[~2019-07-09] VITALS: Ht 182.9 cm; Wt 69.6 kg
[2019-07-09] MEDS ORDERED: IPRATROPIUM BROMIDE (0.02%) 0.5MG/2.5ML NEB HHN STA (19:10)
[2019-07-09] MEDS ORDERED: ALBUTEROL (0.083%) 2.5MG/3ML NEB HHN STA (19:10)
[2019-07-09] MEDS ORDERED: METHYLPREDNISOLONE SOD SUCC 125 MG/2 ML VIAL IV STA (19:10)
[2019-07-09] MEDS ORDERED: MAGNESIUM 2 G PREMIX 50 ML IV ONE (19:15)
[2019-07-09] MEDS ORDERED: LEVOFLOXACIN 500MG PREMIX 100 ML IV ONE (19:15)
[2019-07-09 19:20] LABS: BASOPHILS % 0.6 % (0.0-2.0); EOSINOPHILS % 5.1 % (0.0-5.0); HEMATOCRIT. 44.6 % (42.0-52.0); LYMPHOCYTES % 31.8 % (20.0-50.0); MEAN CORPUSCULAR HEMOGLOBIN 27.6 pg (28.0-32.0); MEAN CORPUSCULAR VOLUME 82.1 fL (80.0-94.0); MEAN PLATELET VOLUME 8.1 fl (7.4-10.4); NEUTROPHILS % 54.5 % (40.0-76.0); PLATELET 279 x1000/uL (130-400); RED BLOOD CELL COUNT 5.43 mill/uL (4.7-6.1); RED CELL DISTRIBUTION WIDTH 15.8 % (11.6-14.6)
[2019-07-09 19:22] LABS: CHLORIDE 109 mEq/L (98-107)
[2019-07-09] MEDS ORDERED: ALBUTEROL (0.083%) 2.5MG/3ML NEB HHN ONE (22:30)
[2019-07-09 22:42] LABS: BG BASE EXCESS 0.5 mmol/L (-2.0-2.0); BG BILEVEL POS AIRWAY PRESSURE 16/5; BG CARBOXYHEMOGLOBIN 0.4 % (0.5-1.5); BG DEOXYHEMOGLOBIN 0.9 % (0.0-5.0); BG FRACTION INSPIRED OXYGEN 50; BG HCO3 ACT 26.6 mmol/L (22.0-26.0); BG METHEMOGLOBIN 0.3 % (0.0-1.5); BG OXYGEN SATURATION 99.1 % (92.0-98.5); BG OXYHEMOGLOBIN 98.4 % (94.0-97.0); BG PCO2 47.9 mmHg (35.0-45.0); BG PH 7.362 (7.350-7.450); BG PO2 212.5 mmHg (75.0-100.0); BG SAMPLE SITE LEFT BRACHIAL; BG TOTAL HEMOGLOBIN 14.6 g/dL (12.0-18.0); BG VENT MODE MASK - BIPAP; BG VENT RATE 12 set
[2019-07-09] MEDS ORDERED: ONDANSETRON HCL 4MG/2ML INJ IV PRN (23:15)
[2019-07-09] MEDS ORDERED: DIPHENHYDRAMINE 50MG/ML VIAL IV PRN (23:15)
[2019-07-09] MEDS ORDERED: CLONIDINE 0.1MG TABLET PO PRN (23:15)
[2019-07-09] MEDS ORDERED: DOCUSATE SODIUM 100MG CAPSULE PO PRN (23:15)
[2019-07-09] MEDS ORDERED: HYDROCODONE/ACETAMINOPHEN 10/325MG TABLET PO PRN (23:15)
[2019-07-09] MEDS ORDERED: DEXTROSE 50% WATER 50ML SYRINGE IV PRN (23:15)
[2019-07-09] MEDS ORDERED: LEVOFLOXACIN 500MG PREMIX 100 ML IV SCH (23:15)
[2019-07-09] MEDS ORDERED: NA PHOS,M-B/NA PHOS,DI-BA ENEMA 118ML PR PRN (23:15)
[2019-07-09] MEDS ORDERED: MAGNESIUM/ALUMINUM HYDROXIDE/SIMETHICONE 30ML UDC PO PRN (23:15)
[2019-07-09] MEDS ORDERED: IPRATROPIUM/ALBUTEROL 0.5-3(2.5)MG/3ML NEB HHN PRN (23:15)
[2019-07-09] MEDS ORDERED: MORPHINE SULFATE 2 MG/ML CPJ (NOT FOR IM USE) IV PRN (23:15)
[2019-07-09] MEDS ORDERED: HYDRALAZINE 20MG/ML VIAL IV PRN (23:15)
[2019-07-10] VITALS (13 sets, daily range): BP systolic 105–171; BP diastolic 56–83
[2019-07-10] MEDS: LORAZEPAM 2MG/ML CPJ IV PRN ×2 (02:03→14:05)
[2019-07-10] MEDS: SODIUM CHLORIDE 0.9% INJ 3ML FLUSH IVF SCH ×3 (06:28→21:24)
[2019-07-10] MEDS: METHYLPREDNISOLONE SOD SUCC 125 MG/2 ML VIAL IV SCH ×3 (06:28→18:03)
[2019-07-10] MEDS: ENOXAPARIN 40MG/0.4ML SYR SUBCUT SCH (09:15)
[2019-07-10] MEDS: IPRATROPIUM/ALBUTEROL 0.5-3(2.5)MG/3ML NEB HHN SCH ×4 (09:49→20:43)
[2019-07-10 09:51] LABS: CHLORIDE 110 mEq/L (98-107)
[2019-07-10 09:58] LABS: HEMATOCRIT. 46.3 % (42.0-52.0); HEMOGLOBIN. 15.3 g/dL (14.0-18.0); MEAN CORPUSCULAR HEMOGLOBIN 27.4 pg (28.0-32.0); MEAN CORPUSCULAR VOLUME 82.9 fL (80.0-94.0); PLATELET 270 x1000/uL (130-400); RED BLOOD CELL COUNT 5.58 mill/uL (4.7-6.1); RED CELL DISTRIBUTION WIDTH 15.9 % (11.6-14.6)
[2019-07-10] MEDS ORDERED: INFLUENZA VIRUS VACCINE(AFLURIA) 0.5ML SYR IM ONE (10:00)
[2019-07-10 10:02] LABS: CREATINE KINASE 210 IU/L (39-308)
[2019-07-10 10:05] LABS: CREATINE KINASE MB FRACTION 7.2 ng/mL (0.5-3.6)
[2019-07-10] MEDS: GUAIFENESIN 200MG/10ML SUGAR FREE UDC PO PRN (14:05)
[2019-07-10 15:06] LABS: PLATELET ESTIMATE NORMAL
[2019-07-10 17:34] LABS: CREATINE KINASE 209 IU/L (39-308)
[2019-07-10 17:35] LABS: CREATINE KINASE MB FRACTION 7.6 ng/mL (0.5-3.6)
[2019-07-10] MEDS: GUAIFENESIN 600MG ER TABLET PO SCH (20:27)
[2019-07-10] MEDS: LEVOFLOXACIN 500MG PREMIX 100 ML IV SCH (20:27)
[2019-07-11] VITALS (12 sets, daily range): BP systolic 94–128; BP diastolic 36–85
[2019-07-11] MEDS: IPRATROPIUM/ALBUTEROL 0.5-3(2.5)MG/3ML NEB HHN SCH ×7 (00:22→23:45)
[2019-07-11] MEDS: METHYLPREDNISOLONE SOD SUCC 125 MG/2 ML VIAL IV SCH ×2 (00:25→05:45)
[2019-07-11] MEDS: SODIUM CHLORIDE 0.9% INJ 3ML FLUSH IVF SCH ×3 (05:45→21:07)
[2019-07-11] MEDS: GUAIFENESIN 600MG ER TABLET PO SCH ×2 (09:00→21:07)
[2019-07-11] MEDS: ENOXAPARIN 40MG/0.4ML SYR SUBCUT SCH (09:47)
[2019-07-11] MEDS: LORAZEPAM 2MG/ML CPJ IV PRN ×2 (10:45→16:09)
[2019-07-11] MEDS: METHYLPREDNISOLONE SOD SUCC 40 MG/ML VIAL IV SCH ×2 (13:09→21:07)
[2019-07-11] MEDS: LEVOFLOXACIN 500MG PREMIX 100 ML IV SCH (21:07)
[2019-07-12] VITALS (12 sets, daily range): BP systolic 100–148; BP diastolic 51–88
[2019-07-12] MEDS: IPRATROPIUM/ALBUTEROL 0.5-3(2.5)MG/3ML NEB HHN SCH ×5 (03:50→20:42)
[2019-07-12] MEDS: SODIUM CHLORIDE 0.9% INJ 3ML FLUSH IVF SCH ×3 (05:35→21:13)
[2019-07-12] MEDS: METHYLPREDNISOLONE SOD SUCC 40 MG/ML VIAL IV SCH ×3 (05:35→21:13)
[2019-07-12 06:51] LABS: HEMATOCRIT. 36.1 % (42.0-52.0); HEMOGLOBIN. 12.1 g/dL (14.0-18.0); MEAN CORPUSCULAR HEMOGLOBIN 27.6 pg (28.0-32.0); MEAN CORPUSCULAR VOLUME 81.9 fL (80.0-94.0); MEAN PLATELET VOLUME 7.5 fl (7.4-10.4); PLATELET 200 x1000/uL (130-400); RED BLOOD CELL COUNT 4.41 mill/uL (4.7-6.1); RED CELL DISTRIBUTION WIDTH 15.6 % (11.6-14.6)
[2019-07-12 06:54] LABS: CHLORIDE 109 mEq/L (98-107)
[2019-07-12] MEDS: GUAIFENESIN 600MG ER TABLET PO SCH ×2 (08:36→21:13)
[2019-07-12] MEDS: ENOXAPARIN 40MG/0.4ML SYR SUBCUT SCH (08:37)
[2019-07-12 10:07] LABS: PLATELET ESTIMATE NORMAL
[2019-07-12] MEDS: LORAZEPAM 2MG/ML CPJ IV PRN (14:00)
[2019-07-12] MEDS: LEVOFLOXACIN 500MG PREMIX 100 ML IV SCH (21:13)
[2019-07-13] VITALS (12 sets, daily range): BP systolic 97–144; BP diastolic 50–75
[2019-07-13] MEDS: IPRATROPIUM/ALBUTEROL 0.5-3(2.5)MG/3ML NEB HHN SCH ×6 (01:20→21:16)
[2019-07-13] MEDS: METHYLPREDNISOLONE SOD SUCC 40 MG/ML VIAL IV SCH ×3 (06:14→22:55)
[2019-07-13] MEDS: SODIUM CHLORIDE 0.9% INJ 3ML FLUSH IVF SCH ×3 (06:15→22:54)
[2019-07-13 06:34] LABS: HEMATOCRIT. 37.3 % (42.0-52.0); HEMOGLOBIN. 12.5 g/dL (14.0-18.0); MEAN CORPUSCULAR HEMOGLOBIN 27.5 pg (28.0-32.0); MEAN CORPUSCULAR VOLUME 81.9 fL (80.0-94.0); MEAN PLATELET VOLUME 7.8 fl (7.4-10.4); PLATELET 211 x1000/uL (130-400); RED BLOOD CELL COUNT 4.55 mill/uL (4.7-6.1); RED CELL DISTRIBUTION WIDTH 15.7 % (11.6-14.6)
[2019-07-13 07:00] LABS: CHLORIDE 107 mEq/L (98-107)
[2019-07-13] MEDS: GUAIFENESIN 600MG ER TABLET PO SCH ×2 (08:43→20:48)
[2019-07-13] MEDS: GUAIFENESIN 200MG/10ML SUGAR FREE UDC PO PRN ×4 (08:43→22:56)
[2019-07-13] MEDS: ENOXAPARIN 40MG/0.4ML SYR SUBCUT SCH (08:44)
[2019-07-13 09:47] LABS: PLATELET ESTIMATE NORMAL
[2019-07-13] MEDS: ACETAMINOPHEN 325MG TABLET PO PRN (16:21)
[2019-07-13] MEDS: LEVOFLOXACIN 500MG PREMIX 100 ML IV SCH (20:42)
[2019-07-14] VITALS (12 sets, daily range): BP systolic 100–136; BP diastolic 61–92
[2019-07-14] MEDS: IPRATROPIUM/ALBUTEROL 0.5-3(2.5)MG/3ML NEB HHN SCH ×6 (00:15→21:29)
[2019-07-14] MEDS: METHYLPREDNISOLONE SOD SUCC 40 MG/ML VIAL IV SCH ×3 (06:33→21:31)
[2019-07-14] MEDS: SODIUM CHLORIDE 0.9% INJ 3ML FLUSH IVF SCH ×3 (06:34→21:32)
[2019-07-14] MEDS: ENOXAPARIN 40MG/0.4ML SYR SUBCUT SCH (08:30)
[2019-07-14] MEDS: GUAIFENESIN 600MG ER TABLET PO SCH ×2 (08:30→21:31)
[2019-07-14] MEDS: ACETAMINOPHEN 325MG TABLET PO PRN (12:12)
[2019-07-14] MEDS: LORAZEPAM 2MG/ML CPJ IV PRN (12:35)
[2019-07-14] MEDS ORDERED: TERBUTALINE SULFATE 1MG/ML VIAL SUBCUT NR (15:45)
[2019-07-14] MEDS: LEVOFLOXACIN 500MG PREMIX 100 ML IV SCH (21:31)
[2019-07-15] VITALS (12 sets, daily range): BP systolic 93–114; BP diastolic 47–68
[2019-07-15] MEDS: IPRATROPIUM/ALBUTEROL 0.5-3(2.5)MG/3ML NEB HHN SCH ×6 (00:33→20:33)
[2019-07-15] MEDS: SODIUM CHLORIDE 0.9% INJ 3ML FLUSH IVF SCH ×3 (05:44→22:28)
[2019-07-15] MEDS: METHYLPREDNISOLONE SOD SUCC 40 MG/ML VIAL IV SCH (05:44)
[2019-07-15] MEDS: GUAIFENESIN 600MG ER TABLET PO SCH ×2 (08:03→20:19)
[2019-07-15] MEDS: ENOXAPARIN 40MG/0.4ML SYR SUBCUT SCH (08:03)
[2019-07-15 11:24] LABS: BG BASE EXCESS 4.9 mmol/L (-2.0-2.0); BG CARBOXYHEMOGLOBIN 0.4 % (0.5-1.5); BG DEOXYHEMOGLOBIN 7.3 % (0.0-5.0); BG FRACTION INSPIRED OXYGEN 21; BG HCO3 ACT 29.3 mmol/L (22.0-26.0); BG METHEMOGLOBIN 0.1 % (0.0-1.5); BG OXYGEN SATURATION 92.7 % (92.0-98.5); BG OXYHEMOGLOBIN 92.2 % (94.0-97.0); BG PCO2 42.7 mmHg (35.0-45.0); BG PH 7.455 (7.350-7.450); BG PO2 61.7 mmHg (75.0-100.0); BG SAMPLE SITE RIGHT RADIAL; BG TOTAL HEMOGLOBIN 14.4 g/dL (12.0-18.0); BG VENT MODE ROOM AIR
[2019-07-15] MEDS: PREDNISONE 20MG TABLET PO SCH (17:21)
[2019-07-15] MEDS: ACETAMINOPHEN 325MG TABLET PO PRN (20:19)
[2019-07-15] MEDS ORDERED: LEVOFLOXACIN 500MG TABLET PO SCH (21:00)
[2019-07-16] VITALS (11 sets, daily range): BP systolic 107–125; BP diastolic 53–74
[2019-07-16] MEDS: IPRATROPIUM/ALBUTEROL 0.5-3(2.5)MG/3ML NEB HHN SCH ×4 (00:08→12:26)
[2019-07-16] MEDS: SODIUM CHLORIDE 0.9% INJ 3ML FLUSH IVF SCH (05:32)
[2019-07-16] MEDS: ACETAMINOPHEN 325MG TABLET PO PRN (06:25)
[2019-07-16] MEDS: GUAIFENESIN 600MG ER TABLET PO SCH (10:01)
[2019-07-16] MEDS: PREDNISONE 20MG TABLET PO SCH (10:01)
[2019-07-16] MEDS ORDERED: ENOXAPARIN 60MG/0.6ML SYR SUBCUT SCH (10:15)
[2019-07-17] MEDS ORDERED: ENOXAPARIN 40MG/0.4ML SYR SUBCUT SCH (09:00)
== END 2019-07-16 13:15 | disposition home or self-care (01) | DRG 189 ==
LOC: ER 18:19 → 3WST 23:03 → EDBEDREQTM 23:07 → EDBEDREQ 23:07 → ENRESERV 07-10 00:02
PROVIDERS: ADMIT Internal Medicine; ATTEND Internal Medicine
PROC: 5A09357 Assistance with Respiratory Ventilation, Less than 24 Consecutive Hours, Continuous Positive Airway Pressure (ICD-10-PCS; principal; 2019-07-09)
PROC: 5A09357 Assistance with Respiratory Ventilation, Less than 24 Consecutive Hours, Continuous Positive Airway Pressure (ICD-10-PCS; 2019-07-10)
PROC: 5A09357 Assistance with Respiratory Ventilation, Less than 24 Consecutive Hours, Continuous Positive Airway Pressure (ICD-10-PCS; 2019-07-11)
DX: J96.00 Acute respiratory failure, unspecified whether with hypoxia or hypercapnia (principal); J44.1 Chronic obstructive pulmonary disease with (acute) exacerbation; I10 Essential (primary) hypertension; J06.9 Acute upper respiratory infection, unspecified; F17.210 Nicotine dependence, cigarettes, uncomplicated; F41.9 Anxiety disorder, unspecified; J45.909 Unspecified asthma, uncomplicated; Z60.2 Problems related to living alone; Z88.8 Allergy status to other drugs, medicaments and biological substances; Z79.899 Other long term (current) drug therapy; Z71.6 Tobacco abuse counseling; Z93.1 Gastrostomy status
CPT/HCPCS: 31500; 36415; 36600; 71045; 80048; 82375; 82550; 82553; 82805; 83880; 84484; 93005; 93970; 94002; 94618; 94640; 94660; 97162; 97535; 99291; J1650; J1956; J2060; J2920; J2930; J3105; J3475; J7512; J7611; J7620

== ENCOUNTER 2022-03-09 13:11 | Inpatient (IN) | payer BC, OTHER, MEDICAID ==
[~2022-03-09] VITALS: Ht 182.9 cm; Wt 74.8 kg
[~2022-03-09 13:11] MED LIST changes: +SIMV-43 PO; -SIMV20TA6 PO
[2022-03-09] MEDS ORDERED: ALBUTEROL (0.083%) 2.5MG/3ML NEB HHN ONE ×2 (15:00→15:45)
[2022-03-09] MEDS ORDERED: PREDNISONE 20MG TABLET PO ONE (15:00)
[2022-03-09 16:33] LABS: BASOPHILS % 0.7 % (0.0-2.0); EOSINOPHILS % 0.1 % (0.0-5.0); HEMATOCRIT. 42.5 % (42.0-52.0); HEMOGLOBIN. 13.9 g/dL (14.0-18.0); LYMPHOCYTES % 8.3 % (20.0-50.0); MEAN CORPUSCULAR HEMOGLOBIN 26.3 pg (28.0-32.0); MEAN CORPUSCULAR VOLUME 80.5 fL (80.0-94.0); MEAN PLATELET VOLUME 7.1 fl (7.4-10.4); MONOCYTES % 5.5 % (2.0-8.0); NEUTROPHILS % 85.4 % (40.0-76.0); PLATELET 268 x1000/uL (130-400); RED BLOOD CELL COUNT 5.28 mill/uL (4.7-6.1); RED CELL DISTRIBUTION WIDTH 15.7 % (11.6-14.6)
[2022-03-09 16:44] LABS: CHLORIDE 106 mEq/L (98-107)
[2022-03-09] MEDS ORDERED: PREDNISONE 20MG TABLET PO NR (16:45)
[2022-03-09] MEDS ORDERED: IPRATROPIUM BROMIDE (0.02%) 0.5MG/2.5ML NEB HHN STA (21:19)
[2022-03-09] MEDS: ALBUTEROL (0.083%) 2.5MG/3ML NEB HHN SCH ×2 (22:00→22:13)
[2022-03-10] MEDS ORDERED: ONDANSETRON HCL 4MG/2ML INJ IV PRN (01:00)
[2022-03-10] MEDS ORDERED: CLONIDINE 0.1MG TABLET PO PRN (01:00)
[2022-03-10] MEDS ORDERED: ACETAMINOPHEN 325MG TABLET PO PRN (01:00)
[2022-03-10] MEDS ORDERED: DOCUSATE SODIUM 100MG CAPSULE PO PRN (01:00)
[2022-03-10] MEDS ORDERED: HYDROCODONE/ACETAMINOPHEN 5/325MG TABLET PO PRN (01:00)
[2022-03-10] MEDS ORDERED: NALOXONE HCL 0.4MG/ML VIAL IV PRN (01:30)
[2022-03-10] MEDS: METHYLPREDNISOLONE SOD SUCC 125 MG/2 ML VIAL IV SCH ×5 (02:20→23:08)
[2022-03-10 05:15] VITALS: BP 135/83
[2022-03-10] MEDS: GUAIFENESIN 200MG/10ML SUGAR FREE UDC PO PRN ×3 (06:11→20:27)
[2022-03-10] MEDS ORDERED: PNEUMOCOCCAL VACCINE IM ONE (06:15)
[2022-03-10 08:00] VITALS: BP 137/71
[2022-03-10] MEDS: ENOXAPARIN 40MG/0.4ML SYR SUBCUT SCH (08:59)
[2022-03-10] MEDS: IPRATROPIUM/ALBUTEROL 0.5-3(2.5)MG/3ML NEB HHN PRN ×2 (11:07→16:13)
[2022-03-10 12:00] VITALS: BP 134/77
[2022-03-10] MEDS: BENZONATATE 100MG CAPSULE PO SCH ×2 (15:33→23:08)
[2022-03-10 16:00] VITALS: BP 130/66
[2022-03-10 20:00] VITALS: BP 156/73
[2022-03-10] MEDS: IPRATROPIUM/ALBUTEROL 0.5-3(2.5)MG/3ML NEB HHN SCH (22:10)
[2022-03-11] VITALS: BP 140/78
[2022-03-11] MEDS: IPRATROPIUM/ALBUTEROL 0.5-3(2.5)MG/3ML NEB HHN SCH ×4 (02:47→21:21)
[2022-03-11 04:00] VITALS: BP 114/73
[2022-03-11] MEDS: METHYLPREDNISOLONE SOD SUCC 125 MG/2 ML VIAL IV SCH ×3 (05:34→17:03)
[2022-03-11] MEDS: BENZONATATE 100MG CAPSULE PO SCH ×3 (05:34→21:23)
[2022-03-11 08:00] VITALS: BP 154/77
[2022-03-11 08:26] LABS: HEMATOCRIT. 39.7 % (42.0-52.0); MEAN CORPUSCULAR HEMOGLOBIN 26.4 pg (28.0-32.0); MEAN CORPUSCULAR VOLUME 80.6 fL (80.0-94.0); MEAN PLATELET VOLUME 7.5 fl (7.4-10.4); PLATELET 245 x1000/uL (130-400); RED BLOOD CELL COUNT 4.93 mill/uL (4.7-6.1); RED CELL DISTRIBUTION WIDTH 15.5 % (11.6-14.6)
[2022-03-11 08:34] LABS: CHLORIDE 107 mEq/L (98-107)
[2022-03-11] MEDS: ENOXAPARIN 40MG/0.4ML SYR SUBCUT SCH (08:39)
[2022-03-11] MEDS: GUAIFENESIN 200MG/10ML SUGAR FREE UDC PO PRN ×3 (08:42→21:38)
[2022-03-11 10:26] LABS: ATYPICAL LYMPHOCYTES 1
[2022-03-11 10:27] LABS: PLATELET ESTIMATE NORMAL
[2022-03-11 12:00] VITALS: BP 135/69
[2022-03-11 16:00] VITALS: BP 140/79
[2022-03-11 20:00] VITALS: BP 150/71
[2022-03-12] VITALS: BP 130/80
[2022-03-12] MEDS: METHYLPREDNISOLONE SOD SUCC 125 MG/2 ML VIAL IV SCH ×5 (00:20→23:41)
[2022-03-12] MEDS: IPRATROPIUM/ALBUTEROL 0.5-3(2.5)MG/3ML NEB HHN SCH ×4 (01:24→22:37)
[2022-03-12 04:00] VITALS: BP 130/68
[2022-03-12] MEDS: BENZONATATE 100MG CAPSULE PO SCH ×3 (05:52→21:18)
[2022-03-12 08:00] VITALS: BP 126/86
[2022-03-12] MEDS: ENOXAPARIN 40MG/0.4ML SYR SUBCUT SCH (09:01)
[2022-03-12] MEDS: GUAIFENESIN 200MG/10ML SUGAR FREE UDC PO PRN ×2 (09:01→17:48)
[2022-03-12 12:00] VITALS: BP 150/85
[2022-03-12] MEDS: DIPHENHYDRAMINE 25MG CAPSULE PO PRN ×2 (13:06→21:18)
[2022-03-12 16:00] VITALS: BP 137/86
[2022-03-12] MEDS: MONTELUKAST SODIUM 10MG TABLET PO SCH (17:50)
[2022-03-12 20:24] VITALS: BP 148/74
[2022-03-13 00:32] VITALS: BP 121/69
[2022-03-13] MEDS: IPRATROPIUM/ALBUTEROL 0.5-3(2.5)MG/3ML NEB HHN SCH ×4 (02:08→20:18)
[2022-03-13 04:00] VITALS: BP 122/59
[2022-03-13] MEDS: BENZONATATE 100MG CAPSULE PO SCH ×3 (05:19→21:39)
[2022-03-13] MEDS: METHYLPREDNISOLONE SOD SUCC 125 MG/2 ML VIAL IV SCH ×2 (05:19→12:58)
[2022-03-13 08:00] VITALS: BP_SYST 137; BP_SYST 145; BP_DIAS 69; BP_DIAS 72
[2022-03-13] MEDS: ENOXAPARIN 40MG/0.4ML SYR SUBCUT SCH (09:58)
[2022-03-13] MEDS: GUAIFENESIN 200MG/10ML SUGAR FREE UDC PO PRN ×2 (09:58→17:12)
[2022-03-13 12:00] VITALS: BP 152/64
[2022-03-13 16:00] VITALS: BP 124/52
[2022-03-13] MEDS: MONTELUKAST SODIUM 10MG TABLET PO SCH (17:12)
[2022-03-13 20:00] VITALS: BP 146/74
[2022-03-13] MEDS: BUDESONIDE 0.5MG/2ML NEB HHN SCH (20:18)
[2022-03-13] MEDS: METHYLPREDNISOLONE SOD SUCC 40 MG/ML VIAL IV SCH (21:39)
[2022-03-14] VITALS: BP 128/64
[2022-03-14] MEDS: IPRATROPIUM/ALBUTEROL 0.5-3(2.5)MG/3ML NEB HHN SCH ×4 (01:01→21:17)
[2022-03-14 04:00] VITALS: BP 101/65
[2022-03-14] MEDS: BENZONATATE 100MG CAPSULE PO SCH ×3 (05:19→21:23)
[2022-03-14] MEDS: METHYLPREDNISOLONE SOD SUCC 40 MG/ML VIAL IV SCH ×3 (05:19→21:23)
[2022-03-14 08:01] VITALS: BP 157/75
[2022-03-14] MEDS: ENOXAPARIN 40MG/0.4ML SYR SUBCUT SCH (08:15)
[2022-03-14] MEDS: BUDESONIDE 0.5MG/2ML NEB HHN SCH ×2 (09:33→21:17)
[2022-03-14 11:38] VITALS: BP 135/66
[2022-03-14] MEDS ORDERED: FLUT1AER5 INH (12:40)
[2022-03-14] MEDS ORDERED: MED4 MT (12:40)
[2022-03-14 15:36] VITALS: BP 153/68
[2022-03-14] MEDS: MONTELUKAST SODIUM 10MG TABLET PO SCH (16:11)
[2022-03-14 20:00] VITALS: BP 135/65
[2022-03-15] VITALS: BP 124/62
[2022-03-15] MEDS: IPRATROPIUM/ALBUTEROL 0.5-3(2.5)MG/3ML NEB HHN SCH ×2 (02:31→08:10)
[2022-03-15 04:00] VITALS: BP 146/68
[2022-03-15] MEDS: METHYLPREDNISOLONE SOD SUCC 40 MG/ML VIAL IV SCH ×2 (05:20→13:04)
[2022-03-15] MEDS: BENZONATATE 100MG CAPSULE PO SCH ×2 (05:20→13:04)
[2022-03-15 08:00] VITALS: BP 137/67
[2022-03-15] MEDS: BUDESONIDE 0.5MG/2ML NEB HHN SCH (08:10)
[2022-03-15] MEDS: ENOXAPARIN 40MG/0.4ML SYR SUBCUT SCH (08:24)
[2022-03-15 12:00] VITALS: BP 120/63
[2022-03-15 12:48] VITALS: BP 120/63
== END 2022-03-15 14:00 | disposition home or self-care (01) | DRG 189 ==
LOC: ER 13:11 → MICUSO 03-10 01:25 → 7WST 03-10 05:16
PROVIDERS: ADMIT Hospitalist; ATTEND Hospitalist
DX: J96.01 Acute respiratory failure with hypoxia (principal); J12.9 Viral pneumonia, unspecified; J44.1 Chronic obstructive pulmonary disease with (acute) exacerbation; J44.0 Chronic obstructive pulmonary disease with (acute) lower respiratory infection; E78.5 Hyperlipidemia, unspecified; N40.0 Benign prostatic hyperplasia without lower urinary tract symptoms; I10 Essential (primary) hypertension; E78.00 Pure hypercholesterolemia, unspecified; F17.210 Nicotine dependence, cigarettes, uncomplicated; Z20.822 Contact with and (suspected) exposure to COVID-19; Z88.8 Allergy status to other drugs, medicaments and biological substances; Z79.899 Other long term (current) drug therapy; Z99.81 Dependence on supplemental oxygen; Z82.49 Family history of ischemic heart disease and other diseases of the circulatory system
CPT/HCPCS: 36415; 71045; 80053; 83880; 84484; 85025; 87426; 87804; 93005; 93970; 94640; 97162; 99285; C9803; J1650; J2920; J2930; J7512; J7626; Q0163

== ENCOUNTER 2022-11-02 11:25 | Inpatient (IN) | payer BC, MEDICAID, OTHER ==
[~2022-11-02] VITALS: Ht 365.8 cm; Wt 71.7 kg
[~2022-11-02 11:25] MED LIST changes: +FLUT1AER5 INH; +MED4 MT
[2022-11-02] MEDS ORDERED: ALBUTEROL (0.083%) 2.5MG/3ML NEB HHN STA ×2 (11:47→20:29)
[2022-11-02] MEDS ORDERED: PREDNISONE 20MG TABLET PO STA (11:47)
[2022-11-02] MEDS ORDERED: IPRATROPIUM BROMIDE (0.02%) 0.5MG/2.5ML NEB HHN STA ×2 (11:47→20:29)
[2022-11-02] MEDS ORDERED: ALBUTEROL (0.083%) 2.5MG/3ML NEB HHN NR (15:15)
[2022-11-02] MEDS ORDERED: IPRATROPIUM BROMIDE (0.02%) 0.5MG/2.5ML NEB HHN NR (15:15)
[2022-11-02 15:18] LABS: BASOPHILS % 0.5 % (0.0-2.0); EOSINOPHILS % 1.1 % (0.0-5.0); HEMATOCRIT. 41.7 % (42.0-52.0); HEMOGLOBIN. 13.9 g/dL (14.0-18.0); LYMPHOCYTES % 8.2 % (20.0-50.0); MEAN CORPUSCULAR HEMOGLOBIN 27.2 pg (28.0-32.0); MEAN CORPUSCULAR VOLUME 81.9 fL (80.0-94.0); MEAN PLATELET VOLUME 7.9 fl (7.4-10.4); MONOCYTES % 11.6 % (2.0-8.0); NEUTROPHILS % 78.6 % (40.0-76.0); PLATELET 211 x1000/uL (130-400); RED BLOOD CELL COUNT 5.09 mill/uL (4.7-6.1); RED CELL DISTRIBUTION WIDTH 15.7 % (11.6-14.6)
[2022-11-02] MEDS ORDERED: PREDNISONE 20MG TABLET PO NR (15:30)
[2022-11-02 15:36] LABS: CHLORIDE 108 mEq/L (98-107)
[2022-11-02] MEDS ORDERED: ALBUTEROL (0.5%) 2.5MG/0.5ML NEB HHN NR (16:15)
[2022-11-03 00:30] VITALS: BP 146/65
[2022-11-03] MEDS ORDERED: IPRATROPIUM/ALBUTEROL 0.5-3(2.5)MG/3ML NEB HHN PRN (01:00)
[2022-11-03] MEDS ORDERED: ONDANSETRON HCL 4MG/2ML INJ IV PRN (01:00)
[2022-11-03] MEDS ORDERED: CEFTRIAXONE 1 G PREMIX 50 ML IV SCH (01:00)
[2022-11-03] MEDS ORDERED: HYDROCODONE/ACETAMINOPHEN 5/325MG TABLET PO PRN (01:00)
[2022-11-03] MEDS ORDERED: NALOXONE HCL 0.4MG/ML VIAL IV PRN (01:30)
[2022-11-03 04:00] VITALS: BP 128/56
[2022-11-03 06:43] VITALS: BP 146/65
[2022-11-03 08:00] VITALS: BP 111/61
[2022-11-03] MEDS: PANTOPRAZOLE 40MG DR TABLET PO SCH (08:59)
[2022-11-03] MEDS: ENOXAPARIN 40MG/0.4ML SYR SUBCUT SCH (09:00)
[2022-11-03] MEDS: CEFTRIAXONE 1,000 MG in DEXTROSE 5% WATER 50 ML IV SCH (11:59)
[2022-11-03 12:00] VITALS: BP 125/68
[2022-11-03] MEDS: ALBUTEROL (0.083%) 2.5MG/3ML NEB HHN PRN (13:46)
[2022-11-03] MEDS: IPRATROPIUM BROMIDE (0.02%) 0.5MG/2.5ML NEB HHN PRN ×2 (13:46→21:28)
[2022-11-03 16:00] VITALS: BP 113/70
[2022-11-04] VITALS: BP 135/71
[2022-11-04 08:00] VITALS: BP 131/80
[2022-11-04] MEDS: METHYLPREDNISOLONE SOD SUCC 40 MG/ML VIAL IV SCH ×2 (08:33→17:23)
[2022-11-04] MEDS: ENOXAPARIN 40MG/0.4ML SYR SUBCUT SCH (08:33)
[2022-11-04] MEDS: PANTOPRAZOLE 40MG DR TABLET PO SCH (08:33)
[2022-11-04] MEDS: IPRATROPIUM BROMIDE (0.02%) 0.5MG/2.5ML NEB HHN PRN ×3 (08:34→21:58)
[2022-11-04] MEDS: ALBUTEROL (0.083%) 2.5MG/3ML NEB HHN PRN ×3 (08:34→21:57)
[2022-11-04] MEDS: CEFTRIAXONE 1,000 MG in DEXTROSE 5% WATER 50 ML IV SCH (11:26)
[2022-11-04 12:00] VITALS: BP 117/63
[2022-11-04 16:00] VITALS: BP 100/58
[2022-11-04 20:00] VITALS: BP 117/61
[2022-11-04 23:43] VITALS: BP 119/61
[2022-11-05] MEDS: ALBUTEROL (0.083%) 2.5MG/3ML NEB HHN PRN ×3 (02:30→22:30)
[2022-11-05] MEDS: IPRATROPIUM BROMIDE (0.02%) 0.5MG/2.5ML NEB HHN PRN ×2 (02:30→22:30)
[2022-11-05 04:00] VITALS: BP 115/65
[2022-11-05 06:34] LABS: HEMATOCRIT. 38.4 % (42.0-52.0); HEMOGLOBIN. 12.7 g/dL (14.0-18.0); MEAN CORPUSCULAR HEMOGLOBIN 26.9 pg (28.0-32.0); MEAN CORPUSCULAR VOLUME 80.9 fL (80.0-94.0); MEAN PLATELET VOLUME 7.9 fl (7.4-10.4); PLATELET 199 x1000/uL (130-400); RED BLOOD CELL COUNT 4.74 mill/uL (4.7-6.1); RED CELL DISTRIBUTION WIDTH 15.3 % (11.6-14.6)
[2022-11-05 06:45] LABS: CHLORIDE 106 mEq/L (98-107)
[2022-11-05 08:00] VITALS: BP 120/67
[2022-11-05] MEDS: METHYLPREDNISOLONE SOD SUCC 40 MG/ML VIAL IV SCH ×2 (08:37→16:56)
[2022-11-05] MEDS: ENOXAPARIN 40MG/0.4ML SYR SUBCUT SCH (08:38)
[2022-11-05] MEDS: FAMOTIDINE 20MG TABLET PO SCH ×2 (08:38→21:44)
[2022-11-05] MEDS: CEFTRIAXONE 1,000 MG in DEXTROSE 5% WATER 50 ML IV SCH (11:09)
[2022-11-05 11:12] LABS: PLATELET ESTIMATE NORMAL
[2022-11-05 12:00] VITALS: BP 109/54
[2022-11-05 16:00] VITALS: BP 132/66
[2022-11-05 20:00] VITALS: BP 136/76
[2022-11-06] VITALS: BP 119/52
[2022-11-06] MEDS: ALBUTEROL (0.083%) 2.5MG/3ML NEB HHN PRN ×3 (02:30→11:32)
[2022-11-06 04:00] VITALS: BP 122/61
[2022-11-06] MEDS: IPRATROPIUM BROMIDE (0.02%) 0.5MG/2.5ML NEB HHN PRN (05:40)
[2022-11-06 08:00] VITALS: BP 139/57
[2022-11-06] MEDS: METHYLPREDNISOLONE SOD SUCC 40 MG/ML VIAL IV SCH ×2 (09:02→17:12)
[2022-11-06] MEDS: FAMOTIDINE 20MG TABLET PO SCH ×2 (09:02→20:22)
[2022-11-06] MEDS: ENOXAPARIN 40MG/0.4ML SYR SUBCUT SCH (09:03)
[2022-11-06] MEDS ORDERED: PROMETHAZINE/DEXTROMETHORPHAN 6.25-15MG/5ML BOTTLE 120ML PO PRN (10:45)
[2022-11-06] MEDS: CEFTRIAXONE 1,000 MG in DEXTROSE 5% WATER 50 ML IV SCH (11:07)
[2022-11-06 12:00] VITALS: BP 126/60
[2022-11-06] MEDS ORDERED: GUAIFENESIN/CODEINE 100-10MG/5ML UDC PO PRN (13:15)
[2022-11-06] MEDS ORDERED: GUAIFENESIN/CODEINE 200-20MG/10ML UDC PO PRN (14:30)
[2022-11-06 16:00] VITALS: BP 112/60
[2022-11-06 20:00] VITALS: BP 129/65
[2022-11-07] MEDS: ALBUTEROL (0.083%) 2.5MG/3ML NEB HHN PRN (01:34)
[2022-11-07] MEDS: IPRATROPIUM BROMIDE (0.02%) 0.5MG/2.5ML NEB HHN PRN (01:34)
[2022-11-07 04:00] VITALS: BP 123/62
[2022-11-07 08:00] VITALS: BP 126/70
[2022-11-07] MEDS: METHYLPREDNISOLONE SOD SUCC 40 MG/ML VIAL IV SCH ×2 (09:01→17:56)
[2022-11-07] MEDS: FAMOTIDINE 20MG TABLET PO SCH (09:01)
[2022-11-07] MEDS: ENOXAPARIN 40MG/0.4ML SYR SUBCUT SCH (09:01)
[2022-11-07] MEDS: CEFTRIAXONE 1,000 MG in DEXTROSE 5% WATER 50 ML IV SCH (11:07)
[2022-11-07 12:00] VITALS: BP 139/57
[2022-11-07 12:06] LABS: BG BASE EXCESS 4.1 mmol/L (-2.0-2.0); BG CARBOXYHEMOGLOBIN 0.7 % (0.5-1.5); BG DEOXYHEMOGLOBIN 8.9 % (0.0-5.0); BG HCO3 ACT 28.6 mmol/L (22.0-26.0); BG METHEMOGLOBIN 0.1 % (0.0-1.5); BG OXYHEMOGLOBIN 90.3 % (94.0-97.0); BG PCO2 42.4 mmHg (35.0-45.0); BG PH 7.447 (7.350-7.450); BG PO2 60.3 mmHg (75.0-100.0); BG SAMPLE SITE RIGHT RADIAL; BG TOTAL HEMOGLOBIN 13.6 g/dL (12.0-18.0); BG VENT MODE ROOM AIR
[2022-11-07 15:51] LABS: HEMATOCRIT. 39.6 % (42.0-52.0); HEMOGLOBIN. 12.6 g/dL (14.0-18.0); MEAN CORPUSCULAR HEMOGLOBIN 25.8 pg (28.0-32.0); MEAN CORPUSCULAR VOLUME 81.4 fL (80.0-94.0); MEAN PLATELET VOLUME 8.4 fl (7.4-10.4); PLATELET 198 x1000/uL (130-400); RED BLOOD CELL COUNT 4.86 mill/uL (4.7-6.1)
[2022-11-07 16:00] VITALS: BP 131/61
[2022-11-07 17:07] VITALS: BP 131/61
[2022-11-07 17:30] LABS: PLATELET ESTIMATE NORMAL
== END 2022-11-07 18:10 | disposition home or self-care (01) | DRG 190 ==
LOC: ER 11:25 → MICUSO 20:14 → 7EST 11-03 00:29
PROVIDERS: ADMIT Internal Medicine; ATTEND Internal Medicine
DX: J44.1 Chronic obstructive pulmonary disease with (acute) exacerbation (principal); U07.1 COVID-19; I10 Essential (primary) hypertension; F17.200 Nicotine dependence, unspecified, uncomplicated; Z88.1 Allergy status to other antibiotic agents; Z88.8 Allergy status to other drugs, medicaments and biological substances; Z79.899 Other long term (current) drug therapy
CPT/HCPCS: 36415; 36600; 71045; 80053; 82375; 82805; 83880; 84484; 85025; 87426; 93005; 94640; 99285; J0696; J1650; J2920; J7060; J7512